=== PATIENT | male | born 1970 | race Caucasian/White ===

== ENCOUNTER 2017-02-15 04:50 | Emergency (ER) | payer SELFPAY ==
[~2017-02-15] VITALS: Ht 182.9 cm; Wt 82.0 kg
[2017-02-15 05:01] VITALS: BP 132/84; PULSE 101; RESP 16; TEMP 98.3; O2SAT 97
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
== END 2017-02-15 05:45 | disposition home or self-care (01) ==
LOC: NEPB 04:50
DX: F10.120 Alcohol abuse with intoxication, uncomplicated (principal); F17.200 Nicotine dependence, unspecified, uncomplicated; Z86.59 Personal history of other mental and behavioral disorders; Z86.69 Personal history of other diseases of the nervous system and sense organs
CPT/HCPCS: 99282

== ENCOUNTER 2017-02-15 19:35 | Emergency (ER) | payer OTHER ==
[~2017-02-15] VITALS: Ht 182.9 cm; Wt 80.0 kg
[2017-02-15 20:14] VITALS: BP 134/82; PULSE 103; RESP 18; TEMP 99.8; O2SAT 96
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
[2017-02-15 22:41] VITALS: BP 165/93; PULSE 120; RESP 17; O2SAT 96
[2017-02-16 02:11] VITALS: BP 143/81; PULSE 89; RESP 19; O2SAT 99
[2017-02-16 06:40] VITALS: BP 151/77; PULSE 93; RESP 17; O2SAT 97
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
== END 2017-02-16 10:14 | disposition home or self-care (01) ==
LOC: NEDAMB 19:35 → NEPJ 02-16 10:14
DX: F10.94 Alcohol use, unspecified with alcohol-induced mood disorder (principal); F10.20 Alcohol dependence, uncomplicated; F17.200 Nicotine dependence, unspecified, uncomplicated; Z86.59 Personal history of other mental and behavioral disorders; Z86.69 Personal history of other diseases of the nervous system and sense organs
CPT/HCPCS: 99284

== ENCOUNTER 2017-04-03 11:48 | Observation (INO) | payer SELFPAY ==
[~2017-04-03] VITALS: Ht 182.9 cm; Wt 80.0 kg
[2017-04-03 11:57] VITALS: BP 132/72; PULSE 115; RESP 18; TEMP 98.8; O2SAT 97
[2017-04-03 12:00] VITALS: BP 132/72; PULSE 105; RESP 22; O2SAT 96
[2017-04-03] MEDS ORDERED: SODIUM CHLOR 0.9% 1000 ML INJ 1,000 ML IV SCH (12:05)
[2017-04-03 12:09] VITALS: O2SAT 98
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
[2017-04-03] MEDS ORDERED: SODIUM CHLORIDE 0.9% FLUSH 10 ML FLUSH IVF PRN (12:15)
[2017-04-03] MEDS ORDERED: LORazepam 2 MG/ML VIAL IV PUSH ONE (12:15)
--- NOTE | 2017-04-03 12:22 | RADRPT ---
EXAM DATE/TIME: 04/03/2017 12:05 [facility] COMPARISON: No previous studies available for comparison. INDICATIONS : Syncope, shaking, chest pain. MEDICAL HISTORY : None. SURGICAL HISTORY : None. ENCOUNTER: Initial ACUITY: 1 day PAIN SCORE: Non-responsive. LOCATION: Bilateral chest FINDINGS: A single view of the chest demonstrates the lungs to be symmetrically aerated without evidence of mas s, infiltrate or effusion. The cardiomediastinal contours are unremarkable. Osseous structures are intact. CONCLUSION: Normal examination for a patient of this age. Eddie Adame MD on April 03, 2017 at 12:20 Board Certified Radiologist. This report was verified electronically.
[2017-04-03 12:39] LABS: AUTOMATED NEUTROPHIL # 3.7 TH/MM3 (1.8-7.7); BASOPHIL # 0.1 TH/MM3 (0-0.2); BASOPHIL % 1.5 % (0.0-2.0); EOSINOPHIL % 0.3 % (0.0-4.0); HEMATOCRIT 43.1 % (39.0-51.0); HEMO FLAGS DIFF FINAL; LYMPH % 37.3 % (9.0-44.0); LYMPHOCYTE # 2.9 TH/MM3 (1.0-4.8); MEAN CELL VOLUME 102.7 FL (80.0-100.0); MEAN CORPUSCULAR HEMOGLOBIN 34.1 PG (27.0-34.0); MEAN CORPUSCULAR HGB CONC 33.2 % (32.0-36.0); MONO % 12.2 % (0.0-8.0); NEUT % 48.7 % (16.0-70.0); PLATELET COUNT 247 TH/MM3 (150-450); RED BLOOD COUNT 4.19 MIL/MM3 (4.50-5.90); RED CELL DISTRIBUTION WIDTH 14.5 % (11.6-17.2); WHITE BLOOD COUNT 7.6 TH/MM3 (4.0-11.0)
[2017-04-03 12:46] LABS: BLOOD, URINE NEG (NEG); GLUCOSE,URINE NEG (NEG); KETONE, URINE NEG (NEG); NITRITE,URINE NEG (NEG); URINE COLOR LIGHT-YELLOW (YELLW/STRAW)
[2017-04-03 12:53] LABS: AMPHETAMINE, URINE NEG (NEG); BARBITURATES, URINE NEG (NEG); COCAINE, URINE NEG (NEG)
[2017-04-03 12:54] LABS: COMMENT (UR) CATH-CULT NOT IND; CULTURE IF INDICATED CATH CULTURE NOT IND
[2017-04-03 12:59] LABS: ALT (GPT) 77 U/L (12-78); ANION GAP 10 MEQ/L (5-15); AST (GOT) 45 U/L (15-37); BICARBONATE 26.5 MEQ/L (21.0-32.0); BLOOD UREA NITROGEN 6 MG/DL (7-18); CHLORIDE 103 MEQ/L (98-107); GLOMERULAR FILTRATION RATE 132 ML/MIN (>89); POTASSIUM 3.8 MEQ/L (3.5-5.1); SODIUM (NA) 139 MEQ/L (136-145)
--- NOTE | 2017-04-03 13:03 | RADRPT ---
EXAM DATE/TIME: 04/03/2017 12:50 [facility] COMPARISON: CT BRAIN W/O CONTRAST, May 24, 2011, 15:40. INDICATIONS : Syncpopal episode today head pain. RADIATION DOSE: 56.77 CTDIvol (mGy) MEDICAL HISTORY : Seizures. History of trumatic brain injury SURGICAL HISTORY : None. ENCOUNTER: Initial ACUITY: 1 day PAIN SCALE: 7/10 LOCATION: cranial TECHNIQUE: Multiple contiguous axial images were obtained of the head. Using automated exposure control and adj ustment of the mA and/or kV according to patient size, radiation dose was kept as low as reasonably a chievable to obtain optimal diagnostic quality images. FINDINGS: CEREBRUM: The ventricles are normal for age. No evidence of midline shift, mass lesion, hemorrhage or acute in farction. No extra-axial fluid collections are seen. POSTERIOR FOSSA: The cerebellum and brainstem are intact. The 4th ventricle is midline. The cerebellopontine angle i s unremarkable. EXTRACRANIAL: The visualized portion of the orbits is intact. SKULL: The calvaria is intact. No evidence of skull fracture. CONCLUSION: Negative for acute process. Demetrius Ricks MD FACR on April 03, 2017 at 13:00 Board Certified Radiologist. This report was verified electronically.
[2017-04-03 13:05] LABS: ALKALINE PHOSPHATASE 81 U/L (45-117); CREATINE KINASE 151 U/L (39-308); TOTAL BILIRUBIN ADULT 0.3 MG/DL (0.2-1.0)
[2017-04-03] MEDS ORDERED: FLUMAZENIL 0.5 MG/5 ML VIAL IV PUSH PRN (14:15)
[2017-04-03] MEDS ORDERED: LORazepam 1 MG TAB PO PRN (14:15)
[2017-04-03] MEDS ORDERED: SODIUM CHLORIDE 0.9% FLUSH 10 ML FLUSH IV FLUSH PRN (14:15)
[2017-04-03] MEDS ORDERED: ACETAMINOPHEN 325 MG TAB PO PRN (14:15)
[2017-04-03] MEDS ORDERED: ONDANSETRON HCL 4 MG/2 ML VIAL IVP PRN (14:15)
[2017-04-03] MEDS ORDERED: LORazepam 2 MG TAB PO PRN (14:15)
[2017-04-03] MEDS ORDERED: LORazepam 2 MG/ML VIAL IV PUSH PRN ×4 (14:15)
[2017-04-03] MEDS ORDERED: MAGNESIUM HYDROXIDE SUSP 30 ML CUP PO PRN (14:15)
[2017-04-03] MEDS ORDERED: NALOXONE HCL 0.4 MG/ML AMP IV PRN (14:15)
[2017-04-03 14:42] LABS: MAGNESIUM 2.3 MG/DL (1.5-2.5)
--- NOTE | 2017-04-03 14:51 | HHI.HP ---
[facility] No Primary Care Physician Admission Diagnosis altered mental status, suspected new onset seizure, etoh inotoxicati Diagnoses: Chief Complaint: "I fell down." Travel History International Travel<30 Days: No Contact w/Intl Traveler <30 Da: No Traveled to Known Affected Are: No History of Present Illness Mr. Dominguez is a 46 year old male with a history of TBI, chronic alcohol abuse who presented to the ED today after falling at a local [employer]. Per ED report, paramedics noted patient's eyes flipped into the back of his head and flutter. He reports possible dizziness, sweating prior to falling. He does not recall the exact detail of the incident. He drinks 6 to 8 beers a night. If he does not drink, he find it difficult to sleep for several days. His last drink was this morning - 6 pack of beer. He denies any chest pain, shortness of breath, fever, chills, cough. He reports no history of seizure activity in the past. Denies any changes in bowel or bladder habits. Review of Systems Except as stated in HPI: all other systems reviewed are Neg Past Family Social History Past Medical History Traumatic Brain Injury Chronic cigarette use/nicotine dependence (37 pack year history, pt stated he started smoking 1ppd at the age of 9) Chronic alcohol abuse/addiction (8 beers per day). Past Surgical History Right arm surgery in 2015 Right wrist repair. Right knee "they basically had to reattach my lower right leg." Reported Medications Reported Meds & Active Scripts Active No Active Prescriptions or Reported Medications Allergies: Coded Allergies: No Known Allergies (Verified , 02/15/17) Active Ordered Medications Current Medications Medications (Trade) Dose Ordered Sig/Kelli Route Start Time Stop Time Status Last Admin Sodium Chloride 2 ml 2 ml UNSCH PRN IVF 04/03/17 12:15 Sodium Chloride 1,000 ml @ 125 mls/hr Q8H IV 04/03/17 12:05 04/03/17 20:04 04/03/17 12:30 (NS 1000 ml Inj) 1,000 ml @ 100 mls/hr Q10H IV 04/03/17 14:05 (NS Flush) 2 ml UNSCH PRN IV FLUSH 04/03/17 14:15 (NS Flush) 2 ml BID IV FLUSH 04/03/17 21:00 (Tylenol) 650 mg Q4H PRN PO 04/03/17 14:15 (Zofran Inj) 4 mg Q6H PRN IVP 04/03/17 14:15 (Milk Of Magnesia Liq) 30 ml Q12H PRN PO 04/03/17 14:15 (Narcan Inj) 0.4 mg UNSCH PRN IV 04/03/17 14:15 (Romazicon Inj) 0.2 mg Q1M PRN IV PUSH 04/03/17 14:15 (Ativan) 1 mg Q4H PRN PO 04/03/17 14:15 (Ativan Inj) 1 mg Q4H PRN IV PUSH 04/03/17 14:15 (Ativan) 2 mg Q2H PRN PO 04/03/17 14:15 (Ativan Inj) 2 mg Q2H PRN IV PUSH 04/03/17 14:15 (Ativan Inj) 2 mg Q1H PRN IV PUSH 04/03/17 14:15 Lorazepam 2 mg 2 mg Q15M PRN IV PUSH 04/03/17 14:15 (Thiamine Inj/NS Inj) 101 ml @ 101 mls/hr DAILY IV 04/03/17 14:15 04/05/17 09:59 (Folate) 1 mg DAILY PO 04/03/17 14:15 Family History Pt reported a family history of "cancer running through the family" and specified lung cancer and leukemia. Social History Chronic Alcohol dependence/addiction. Pt said the longest period he has gone without drinking is "two years." He denied withdrawal/DT history. Chronic cigarette use/nicotine dependence Recreational drug use was denied. Physical Exam Vital Signs Vital Signs Date Time Temp Pulse Resp B/P Pulse Ox O2 Delivery O2 Flow Rate FiO2 04/03/17 12:09 115 20 98 Room Air 04/03/17 12:09 98 Room Air 04/03/17 11:57 98.8 115 18 132/72 97 Physical Exam GENERAL: This is a well-nourished, well-developed patient, in no apparent distress. SKIN: No rashes, ecchymoses or lesions. Cool and dry. well healed scars noted on his head, right wrist, and right knee. HEAD: Atraumatic. Normocephalic. No temporal or scalp tenderness. EYES: Pupils equal round and reactive. Extraocular motions intact. No scleral icterus. No injection or drainage. ENT: Nose without bleeding, purulent drainage. Airway patent. NECK: Trachea midline. No JVD or lymphadenopathy. Supple, non-tender. CARDIOVASCULAR: Regular rate and rhythm without murmurs, gallops, or rubs. RESPIRATORY: Clear to auscultation. Breath sounds equal bilaterally. No wheezes , rales, or rhonchi. GASTROINTESTINAL: Abdomen soft, non-tender, nondistended. No hepato-splenomegaly , or palpable masses. No guarding. MUSCULOSKELETAL: Extremities without clubbing, cyanosis, or edema. No joint tenderness, effusion, or edema noted. NEUROLOGICAL: Awake and alert. Cranial nerves II through XII grossly intact. Motor and sensory grossly within normal limits. Five out of 5 muscle strength in all muscle groups. Speech clear and fluent with some degree of pressure noted. Pt seemed to want to tell his entire history yet could easily be redirected back to topic or in a direction the clinician wanted pt to answer/ explore. Laboratory Laboratory Tests Test 04/03/17 12:15 White Blood Count 7.6 Red Blood Count 4.19 Hemoglobin 14.3 Hematocrit 43.1 Mean Corpuscular Volume 102.7 Mean Corpuscular Hemoglobin 34.1 Mean Corpuscular Hemoglobin 33.2 Concent Red Cell Distribution Width 14.5 Platelet Count 247 Mean Platelet Volume 8.4 Neutrophils (%) (Auto) 48.7 Lymphocytes (%) (Auto) 37.3 Monocytes (%) (Auto) 12.2 Eosinophils (%) (Auto) 0.3 Basophils (%) (Auto) 1.5 Neutrophils # (Auto) 3.7 Lymphocytes # (Auto) 2.9 Monocytes # (Auto) 0.9 Eosinophils # (Auto) 0.0 Basophils # (Auto) 0.1 CBC Comment DIFF FINAL Differential Comment Urine Color LIGHT-YELLOW Urine Turbidity CLEAR Urine pH 7.0 Urine Specific [place] 1.002 Urine Protein NEG Urine Glucose (UA) NEG Urine Ketones NEG Urine Occult Blood NEG Urine Nitrite NEG Urine Bilirubin NEG Urine Urobilinogen LESS THAN 2.0 Urine Leukocyte Esterase NEG Urine RBC LESS THAN 1 Urine WBC LESS THAN 1 Microscopic Urinalysis Comment CATH-CULT NOT IND Sodium Level 139 Potassium Level 3.8 Chloride Level 103 Carbon Dioxide Level 26.5 Anion Gap 10 Blood Urea Nitrogen 6 Creatinine 0.65 Estimat Glomerular Filtration 132 Rate Random Glucose 88 Calcium Level 8.6 Total Bilirubin 0.3 Aspartate Amino Transf 45 (AST/SGOT) Alanine Aminotransferase 77 (ALT/SGPT) Alkaline Phosphatase 81 Total Creatine Kinase 151 Troponin I LESS THAN 0.02 Total Protein 7.1 Albumin 3.7 Urine Opiates Screen NEG Urine Barbiturates Screen NEG Urine Amphetamines Screen NEG Urine Benzodiazepines Screen NEG Urine Cocaine Screen NEG Urine Cannabinoids Screen NEG Ethyl Alcohol Level 257 Result Diagram: 04/03/17 1215 04/03/17 1215 Imaging Last Impressions Head CT 04/03/17 1205 Signed Impressions: Service Date/Time: Monday, April 03, 2017 12:50 - CONCLUSION: Negative for acute process. Demetrius Ricks MD FACR Chest X-Ray 04/03/17 1205 Signed Impressions: Service Date/Time: Monday, April 03, 2017 12:05 - CONCLUSION: Normal examination for a patient of this age. Eddie Adame MD Bilateral carotid ultra sound is pending. Assessment and Plan Problem List: (1) History of traumatic brain injury ICD Code: Z87.820 Status: Acute (2) Altered sensorium ICD Code: R40.4 Status: Acute (3) Alcohol intoxication ICD Code: F10.129 Status: Acute (4) Tobacco abuse ICD Code: Z72.0 Status: Acute (5) Alcohol abuse ICD Code: F10.10 Status: Acute Assessment and Plan Mr. Dominguez is a 46 year old male with a history of TBI, chronic alcohol abuse who presented to the ED today after falling at a local [employer]. Per ED report, paramedics noted patient's eyes flipped into the back of his head and flutter. Patient reports drinking 6-8 beers a night. Given patient's history of TBI, possible seizure activity was not exclusively attributed to alcohol and thus hospitalist service was asked to admit this patient for further work up. Probable seizure activity Probable syncope Remote history of TBI Seizure activity is likely due to alcohol intake. Neurology has been consulted, awaiting their input. EEG ordered. CT of head without acute findings, images reviewed by me Chest xray without acute findings or cardiomegaly, CXR reviewed by me Bilateral carotid US was being initiated at time H&P was completed; results pending. Will continue telemetry due to concern over possible syncope - although it is a low possibility. Alcohol dependence/addiction -CHRISTELLE was 257 upon admission to ED. -CIWA protocol initiated. -Librium 25 mg po TID ordered -Thiamine and folic acid replacement. Chronic cigarette use/ Nicotine dependence Nicoderm patch 21 mg transdermal daily ordered. Counselled patient regarding alcohol abuse and seizure activity. Full code. SCDs. Discussed Condition With Condition discussed with ED physician (Dr. Werner), Pt, ED RN at bedside. Case also briefly discussed with Neurologist Dr. Lewis. Written by Rolly Pabon, acting as scribe for Dr. Hill on 04/03/17 at 15:38. This note was transcribed by scribe Rolly Pabon PA-C. I, Dr. Celio Hill personally performed the history, physical exam, and medical decision making; and confirmed the accuracy of the information in the transcribed note. Authenticated by Dr. Celio Hill on 04/03/17 at 22:07. Rolly Pabon Jr. April 03, 2017 14:51 Henry Hill DO April 03, 2017 22:08
[2017-04-03 15:00] VITALS: BP 123/78; PULSE 100; RESP 20; TEMP 98.8; O2SAT 96
[2017-04-03] MEDS: SODIUM CHLOR 0.9% 1000 ML INJ 1,000 ML IV SCH (15:14)
[2017-04-03] MEDS: FOLIC ACID 1 MG TAB PO SCH (15:15)
[2017-04-03] MEDS: THIAMINE INJ 100 MG in SODIUM CHLORIDE 0.9% INJ 100 ML IV SCH (15:17)
[2017-04-03] MEDS ORDERED: chlordiazePOXIDE 25 MG CAP PO PRN (15:30)
--- NOTE | 2017-04-03 15:51 | RADRPT ---
EXAM DATE/TIME: 04/03/2017 15:08 [facility] COMPARISON: No previous studies available for comparison. INDICATIONS : Syncope. MEDICAL HISTORY : Syncope. Traumatic brain injury. Depression. Previous suicide attempt. Al cohol use. SURGICAL HISTORY : Tonsillectomy. Right knee repair. Left wrist. Right arm. ENCOUNTER: Initial ACUITY: 1 day PAIN SCORE: 0/10 LOCATION: Bilateral neck PEAK SYSTOLIC VELOCITIES (cm/sec): ICA/CCA RATIO: Right: 0.6 Left: 0.8 ICA: Right: 69 Left: 89 CCA: Right: 120 Left: 116 ECA: Right: 106 Left: 95 VERTEBRAL: Right: 46 antegrade Left: 55 antegrade Elevated flow velocities and ICA/CCA ratios have been found to correlate with increased degrees of vessel stenosis, calculated as percentage of diameter relative to a normal segment of distal ICA/CCA FINDINGS: RIGHT CAROTID: There is no evidence for a hemodynamically significant carotid stenosis. Minimal int imal hyperplasia is present with scattered calcific plaque. LEFT CAROTID: There is no evidence for a hemodynamically significant carotid stenosis. Minimal inti mal hyperplasia is present with scattered calcific plaque. VERTEBRAL ARTERIES: Flow is antegrade in both vertebral arteries. MISCELLANEOUS: There are no ancillary masses or adenopathy. CONCLUSION: Negative examination for a hemodynamically significant carotid stenosis. Demetrius Ricks MD FACR Board Certified Radiologist. This report was verified electronically.
[2017-04-03 16:13] VITALS: BP 134/83; PULSE 91; RESP 20; TEMP 97.9; O2SAT 94
[2017-04-03] MEDS: SODIUM CHLORIDE 0.9% FLUSH 10 ML FLUSH IV FLUSH SCH (20:04)
[2017-04-03] MEDS ORDERED: REMOVE OLD PATCH T-DERMAL SCH (21:00)
[2017-04-03 21:12] LABS: FREE T4 1.04 NG/DL (0.76-1.46)
[2017-04-03 21:46] VITALS: BP 127/82; PULSE 95; RESP 18; TEMP 99.2; O2SAT 94
[2017-04-04] VITALS (7 sets, daily range): BP systolic 126–164; BP diastolic 73–92; PULSE 71–85; RESP 18–20; TEMP 98–99; O2SAT 92–99
[2017-04-04] MEDS: SODIUM CHLOR 0.9% 1000 ML INJ 1,000 ML IV SCH ×2 (00:05→10:23)
--- NOTE | 2017-04-04 07:25 | MG ---
cc: HUSSAIN DELUNA Lab No: [id number] Date: 04/04/2017 Age: 46 Sex: M Race: __ INDICATIONS This is a 46-year-old with syncope, eyes fluttered, rolled back. MEDICATIONS The patient was status post Ativan. DESCRIPTION A 9 Hz 60 microvolt symmetric posterior and diffuse rhythm is seen. No hemisphere asymmetries are noted, the patient appears to fall asleep and does not quite reach stage II sleep. Photic stimulation was performed with some mild symmetric posterior driving. No epileptiform or seizure activity is noted. There are no hemisphere asymmetries, hyperventilation was performed with poor effort without significant change in the background. The patient was noted to be heavily snoring. IMPRESSION A normal awake and sleep EEG. No evidence for a focal or diffuse abnormality. Quite a bit of snoring was noted. MD BHAVANI Matute/JA /6:18 AM /7:22 AM
[2017-04-04 07:51] LABS: AUTOMATED NEUTROPHIL # 4.1 TH/MM3 (1.8-7.7); BASOPHIL # 0.1 TH/MM3 (0-0.2); BASOPHIL % 0.9 % (0.0-2.0); EOSINOPHIL # 0.1 TH/MM3 (0-0.4); EOSINOPHIL % 1.2 % (0.0-4.0); HEMATOCRIT 41.5 % (39.0-51.0); HEMO FLAGS DIFF FINAL; LYMPH % 39.7 % (9.0-44.0); LYMPHOCYTE # 3.4 TH/MM3 (1.0-4.8); MEAN CELL VOLUME 103.1 FL (80.0-100.0); MEAN CORPUSCULAR HEMOGLOBIN 34.9 PG (27.0-34.0); MEAN CORPUSCULAR HGB CONC 33.9 % (32.0-36.0); MONO % 10.4 % (0.0-8.0); NEUT % 47.8 % (16.0-70.0); PLATELET COUNT 239 TH/MM3 (150-450); RED BLOOD COUNT 4.03 MIL/MM3 (4.50-5.90); RED CELL DISTRIBUTION WIDTH 14.8 % (11.6-17.2); WHITE BLOOD COUNT 8.5 TH/MM3 (4.0-11.0)
--- NOTE | 2017-04-04 07:55 | HHI.PR ---
Objective Vital Signs Date Time Temp Pulse Resp B/P Pulse Ox O2 Delivery O2 Flow Rate FiO2 04/04/17 05:39 98.6 73 18 130/92 94 04/04/17 00:35 98.7 72 18 144/84 95 04/03/17 21:46 99.2 95 18 127/82 94 04/03/17 18:37 20 04/03/17 16:13 97.9 91 20 134/83 94 04/03/17 15:00 98.8 100 20 123/78 96 Room Air 04/03/17 12:09 115 20 98 Room Air 04/03/17 12:09 98 Room Air 04/03/17 12:00 105 22 132/72 96 Room Air 04/03/17 11:57 98.8 115 18 132/72 97 Result Diagram: 04/04/17 0600 04/03/17 1215 Objective Remarks AWAKE ALERT NO NEW CO OR PROBLEMS Assessment and Plan Assessment and Plan imp eeg neg labs ok if his mri nl and standing bp ok he can be dc and needs to dc etoh Rico Lewis MD April 04, 2017 07:55
[2017-04-04 08:02] LABS: BICARBONATE 26.2 MEQ/L (21.0-32.0); POTASSIUM 4.2 MEQ/L (3.5-5.1)
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
[2017-04-04] MEDS ORDERED: REMOVE OLD PATCH T-DERMAL SCH (09:00)
[2017-04-04] MEDS ORDERED: NICOTINE 21 MG/24 HR PATCH T-DERMAL SCH (09:00)
--- NOTE | 2017-04-04 09:33 | HHI.PR ---
Subjective Remarks Follow up altered mental status. Patient is currently A&Ox3 and states he is hungry. He states he drinks to be able to sleep, he says nothing else has helped like Tylenol pm. He does not have a pcp or insurance to follow up outpatient. He does at times get dizzy when he drinks, but does not usually fall. He denies any chest pain, sob, fever or chills. He is nauseous from not eating this morning. Denies any tremors or diaphoresis. Objective Vitals Vital Signs Date Time Temp Pulse Resp B/P Pulse Ox O2 Delivery O2 Flow Rate FiO2 04/04/17 08:00 98.2 84 19 139/76 97 141/91 164/89 04/04/17 05:39 98.6 73 18 130/92 94 04/04/17 00:35 98.7 72 18 144/84 95 04/03/17 21:46 99.2 95 18 127/82 94 04/03/17 18:37 20 04/03/17 16:13 97.9 91 20 134/83 94 04/03/17 15:00 98.8 100 20 123/78 96 Room Air 04/03/17 12:09 115 20 98 Room Air 04/03/17 12:09 98 Room Air 04/03/17 12:00 105 22 132/72 96 Room Air 04/03/17 11:57 98.8 115 18 132/72 97 Result Diagram: 04/04/17 0600 04/04/17 0600 Imaging Last Impressions Head CT 04/03/17 1205 Signed Impressions: Service Date/Time: Monday, April 03, 2017 12:50 - CONCLUSION: Negative for acute process. Demetrius Ricks MD FACR Chest X-Ray 04/03/17 1205 Signed Impressions: Service Date/Time: Monday, April 03, 2017 12:05 - CONCLUSION: Normal examination for a patient of this age. Eddie Adame MD Carotid Artery Ultrasound 04/03/17 0000 Signed Impressions: Service Date/Time: Monday, April 03, 2017 15:08 - CONCLUSION: Negative examination for a hemodynamically significant carotid stenosis. Demetrius Ricks MD Objective Remarks GENERAL: well nourished patient in NAD,c/o being hungry SKIN: Warm and dry. HEAD: Atraumatic. Normocephalic. EYES: Pupils equal and round. No scleral icterus. No injection or drainage. ENT: No nasal bleeding or discharge. Mucous membranes pink and moist. NECK: Trachea midline. No JVD. CARDIOVASCULAR: Regular rate and rhythm. RESPIRATORY: No accessory muscle use. Clear to auscultation. Breath sounds equal bilaterally. GASTROINTESTINAL: Abdomen soft, non-tender, nondistended. Nauseous. MUSCULOSKELETAL: Extremities without clubbing, cyanosis, or edema. No obvious deformities. NEUROLOGICAL: Awake and alert. Motor grossly within normal limits. Normal speech. PSYCHIATRIC: Appropriate mood and affect; insight and judgment normal. Medications and IVs Current Medications Medications (Trade) Dose Ordered Sig/Kelli Route Start Time Stop Time Status Last Admin Sodium Chloride 2 ml 2 ml UNSCH PRN IVF 04/03/17 12:15 (NS 1000 ml Inj) 1,000 ml @ 100 mls/hr Q10H IV 04/03/17 14:05 04/03/17 15:14 (NS Flush) 2 ml UNSCH PRN IV FLUSH 04/03/17 14:15 (NS Flush) 2 ml BID IV FLUSH 04/03/17 21:00 (Tylenol) 650 mg Q4H PRN PO 04/03/17 14:15 04/03/17 17:30 (Zofran Inj) 4 mg Q6H PRN IVP 04/03/17 14:15 04/03/17 17:30 (Milk Of Magnesia Liq) 30 ml Q12H PRN PO 04/03/17 14:15 (Narcan Inj) 0.4 mg UNSCH PRN IV 04/03/17 14:15 (Romazicon Inj) 0.2 mg Q1M PRN IV PUSH 04/03/17 14:15 (Ativan) 1 mg Q4H PRN PO 04/03/17 14:15 04/04/17 06:52 (Ativan Inj) 1 mg Q4H PRN IV PUSH 04/03/17 14:15 (Ativan) 2 mg Q2H PRN PO 04/03/17 14:15 (Ativan Inj) 2 mg Q2H PRN IV PUSH 04/03/17 14:15 04/03/17 17:31 (Ativan Inj) 2 mg Q1H PRN IV PUSH 04/03/17 14:15 Lorazepam 2 mg 2 mg Q15M PRN IV PUSH 04/03/17 14:15 (Thiamine Inj/NS Inj) 101 ml @ 101 mls/hr DAILY IV 04/03/17 14:15 04/05/17 09:59 04/03/17 15:17 (Folate) 1 mg DAILY PO 04/03/17 14:15 04/03/17 15:15 (Librium) 25 mg TID PRN PO 04/03/17 15:30 (Habitrol 21 Mg Patch.24 Hr) 1 patch DAILY T-DERMAL 04/04/17 09:00 Miscellaneous Information 1 HS T-DERMAL 04/03/17 21:00 Urinary Catheter: No Vascular Central Line Catheter: No A/P Problem List: (1) History of traumatic brain injury ICD Code: Z87.820 Status: Acute (2) Altered sensorium ICD Code: R40.4 Status: Acute (3) Alcohol intoxication ICD Code: F10.129 Status: Acute (4) Tobacco abuse ICD Code: Z72.0 Status: Chronic (5) Alcohol abuse ICD Code: F10.10 Status: Chronic (6) Syncope ICD Code: R55 Status: Acute Assessment and Plan Mr. Dominguez is a 46 year old male with a history of TBI, chronic alcohol abuse who presented to the ED today after falling at a [place] [employer]. Per ED report, paramedics noted patient's eyes flipped into the back of his head and flutter. Patient reports drinking 6-8 beers a night. Given patient's history of TBI, possible seizure activity was not exclusively attributed to alcohol and thus hospitalist service was asked to admit this patient for further work up. Syncope, possible seizure, hx of TBI, ETOH abuse EEG shows a normal awake and sleep EEG CT of head without acute findings Chest xray without acute findings or cardiomegaly Bilateral carotid US unremarkable, no carotid stenosis -Neurology has been consulted, MRI ordered, MRI unremarkable -Seizure precautions -Cont telemetry -Orthostatics ordered, currently negative -PT eval and treat, suggest no PT, pt is able to ambulate independently Acute alcohol intoxication, no evidence of withdrawals CHRISTELLE was 257 upon admission to ED. -Cont CIWA protocol -Cont Librium 25 mg po TID ordered -Cont Thiamine and folic acid replacement. -Encouraged to quit, patient verbalizes understanding that he needs to quit Chronic cigarette use/ Nicotine dependence -Cont Nicoderm patch 21 mg transdermal daily ordered. -Encouraged to quit DVT prophylaxis: SCDs Discharge patient to home Condition on discharge: Stable Regular Diet as tolerated Ad Hien activity Rx written:none Follow-up with primary care physician in 2-3 days, Blue card given for Dr. Wilson Stop drinking, pt verbalizes understanding. Discharge Planning Pending discharge later today if patient is ambulating, eating and has remained stable. Estella Israel April 04, 2017 09:33
[2017-04-04] MEDS: FOLIC ACID 1 MG TAB PO SCH (09:43)
[2017-04-04] MEDS: SODIUM CHLORIDE 0.9% FLUSH 10 ML FLUSH IV FLUSH SCH (09:43)
[2017-04-04 09:44] LABS: RAPID PLASMA REAGIN SCREEN NON-REACTIVE (NON-REACTVE)
[2017-04-04] MEDS ORDERED: GADODIAMIDE PF 287 MG/ML 20 ML VIAL (for RAD MRI) IV ONE (10:11)
[2017-04-04] MEDS: THIAMINE INJ 100 MG in SODIUM CHLORIDE 0.9% INJ 100 ML IV SCH (10:22)
--- NOTE | 2017-04-04 10:31 | RADRPT ---
EXAM DATE/TIME: 04/04/2017 09:54 [facility] COMPARISON: No previous studies available for comparison. INDICATIONS : Seizures. CONTRAST: 16 cc Omniscan (gadodiamide) IV MEDICAL HISTORY : Traumatic brain injury. SURGICAL HISTORY : Right hand/leg ENCOUNTER: Initial ACUITY: 2 day PAIN SCORE: 0/10 LOCATION: head TECHNIQUE: Multiplanar, multisequence MRI of the brain was performed both prior to and following the administrat ion of paramagnetic contrast. FINDINGS: CEREBRUM: The ventricles are normal for age. No evidence of midline shift, mass lesion, hemorrhage or acute in farction. No extraaxial fluid collections are seen. The pituitary gland and suprasellar cistern are normal in configuration. WHITE MATTER: No significant signal abnormalities are seen in the white matter. POSTERIOR FOSSA: The cerebellum and brainstem are intact. The 4th ventricle is midline. The cerebellopontine angle is unremarkable. The cerebellar tonsils are normal in position. DIFFUSION IMAGING: No focal areas of restricted diffusion are seen. No evidence of acute infarction. EXTRACRANIAL: The visualized portions of the orbits and paranasal sinuses are unremarkable. POST-CONTRAST: No abnormal areas of parenchymal or dural enhancement. No evidence of blood-brain barrier breakdown. CONCLUSION: Normal examination. Rian Feliciano Jr., MD on April 04, 2017 at 10:22 Board Certified Radiologist. This report was verified electronically.
--- NOTE | 2017-04-04 15:21 | EKG ---
Date Performed: 04/03/2017 Time Performed: 12:06:40 PTAGE: 46 years EKG: SINUS TACHYCARDIA ABNORMAL RHYTHM ECG Compared to the PREVIOUS TRACING sinus rate has increased PREVIOUS TRACIN10/05/16 @ 12:53 DOCTOR: Dawson Benavidez Interpretating Date/Time 04/04/2017 15:20:35
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
[2017-04-05 14:27] LABS: ANA SCREEN NEG (NEG)
== END 2017-04-04 18:12 | disposition home or self-care (01) ==
LOC: NEPC 11:48 → NEDA 14:09 → NEPFCDU 16:01
PROVIDERS: ADMIT Internal Medicine; ATTEND Internal Medicine
DX: F10.229 Alcohol dependence with intoxication, unspecified (principal); R56.9 Unspecified convulsions; Z87.820 Personal history of traumatic brain injury; F17.210 Nicotine dependence, cigarettes, uncomplicated; W19.XXXA Unspecified fall, initial encounter; Y92.511 Restaurant or cafe as the place of occurrence of the external cause
CPT/HCPCS: 70450; 70553; 71010; 80048; 80053; 80307; 81001; 82550; 82607; 82746; 83735; 84439; 84443; 84484; 85025; 85652; 86038; 86592; 93005; 93880; 95819; 96361; 96374; 97162; 99285; A9579; G0378; G8987; G8988; J2060; J2405; J3411; J7030

== ENCOUNTER 2017-05-26 18:20 | Emergency (ER) | payer SELFPAY ==
[~2017-05-26] VITALS: Ht 182.9 cm; Wt 77.7 kg
[2017-05-26 18:24] VITALS: BP 95/58; PULSE 75; RESP 15; TEMP 97.9; O2SAT 97
--- NOTE | 2017-05-26 18:49 | PD ---
HPI Chief Complaint: Flank/Kidney Pain Time Seen by Provider: 18:34 Travel History International Travel<30 days: No Contact w/Intl Traveler<30days: No Traveled to known affect area: No History of Present Illness HPI This 46-year-old male says he is having some pain in the right flank. The pain is migratory goes in the right side the left side. Goes up into his chest and down to his leg. Patient does say that he drinks quite a bit of alcohol. PFSH Past Medical History Hx Anticoagulant Therapy: No Anxiety: Yes Depression: Yes Cancer: No Cardiovascular Problems: No Diminished Hearing: No Endocrine: No Gastrointestinal Disorders: No Genitourinary: No Hepatitis: No Hiatal Hernia: No Hypertension: No Immune Disorder: No Musculoskeletal: No Neurologic: Yes (H/O TBI) Psychiatric: Yes Reproductive: No Respiratory: No Immunizations Current: Yes Thyroid Disease: No Tetanus Vaccination: < 5 Years Influenza Vaccination: No Past Surgical History Abdominal Surgery: No AICD: No Body Medical Devices: NONE Cardiac Surgery: No Ear Surgery: No Endocrine Surgery: No Eye Surgery: No Genitourinary Surgery: No Neurologic Surgery: No Pacemaker: No Thoracic Surgery: No Tonsillectomy: Yes Other Surgery: Yes (right arm 2015, knee, wrist) Social History Alcohol Use: Yes (8-10 beers/day) Tobacco Use: Yes (1 PPD) Substance Use: No Allergies-Medications (Allergen,Severity, Reaction): Coded Allergies: No Known Allergies (Verified , 05/26/17) Reported Meds & Prescriptions Reported Meds & Active Scripts Active No Active Prescriptions or Reported Medications Review of Systems General / Constitutional: No: Fever, Chills Eyes: No: Diploplia, Blurred Vision HENT: No: Headaches Cardiovascular: No: Chest Pain or Discomfort Respiratory: No: Cough, Wheezing Gastrointestinal: No: Nausea, Vomiting Genitourinary: Positive: Flank Pain Musculoskeletal: No: Myalgias, Arthralgias Neurologic: No: Weakness, Dizziness Physical Exam Narrative GENERAL: Well-developed male SKIN: Focused skin assessment warm/dry. HEAD: Atraumatic. Normocephalic. EYES: Pupils equal and round. No scleral icterus. No injection or drainage. ENT: No nasal bleeding or discharge. Mucous membranes pink and moist. NECK: Trachea midline. No JVD. CARDIOVASCULAR: Regular rate and rhythm. No murmur appreciated. RESPIRATORY: No accessory muscle use. Clear to auscultation. Breath sounds equal bilaterally. GASTROINTESTINAL: Abdomen soft, non-tender, nondistended. Hepatic and splenic margins not palpable. MUSCULOSKELETAL: No obvious deformities. No clubbing. No cyanosis. No edema. NEUROLOGICAL: Awake and alert. No obvious cranial nerve deficits. Motor grossly within normal limits. Normal speech. PSYCHIATRIC: Appropriate mood and affect; insight and judgment normal. Data Data Last Documented VS Vital Signs Date Time Temp Pulse Resp B/P Pulse Ox O2 Delivery O2 Flow Rate FiO2 05/26/17 19:50 98.4 66 18 114/64 97 Room Air Orders Complete Blood Count With Diff (05/26/17 18:41) Comprehensive Metabolic Panel (05/26/17 18:41) Urinalysis - C+S If Indicated (05/26/17 18:41) Chest, Single Ap (05/26/17 18:41) Labs Laboratory Tests Test 05/26/17 19:14 White Blood Count 12.4 TH/MM3 Red Blood Count 3.97 MIL/MM3 Hemoglobin 13.9 GM/DL Hematocrit 40.0 % Mean Corpuscular Volume 100.7 FL Mean Corpuscular Hemoglobin 35.0 PG Mean Corpuscular Hemoglobin 34.8 % Concent Red Cell Distribution Width 12.0 % Platelet Count 289 TH/MM3 Mean Platelet Volume 8.1 FL Neutrophils (%) (Auto) 73.3 % Lymphocytes (%) (Auto) 20.6 % Monocytes (%) (Auto) 4.6 % Eosinophils (%) (Auto) 0.5 % Basophils (%) (Auto) 1.0 % Neutrophils # (Auto) 9.1 TH/MM3 Lymphocytes # (Auto) 2.6 TH/MM3 Monocytes # (Auto) 0.6 TH/MM3 Eosinophils # (Auto) 0.1 TH/MM3 Basophils # (Auto) 0.1 TH/MM3 CBC Comment DIFF FINAL Differential Comment Sodium Level 139 MEQ/L Potassium Level 3.9 MEQ/L Chloride Level 104 MEQ/L Carbon Dioxide Level 26.5 MEQ/L Anion Gap 9 MEQ/L Blood Urea Nitrogen 11 MG/DL Creatinine 0.73 MG/DL Estimat Glomerular Filtration 115 ML/MIN Rate Random Glucose 163 MG/DL Calcium Level 8.2 MG/DL Total Bilirubin 0.3 MG/DL Aspartate Amino Transf 13 U/L (AST/SGOT) Alanine Aminotransferase 35 U/L (ALT/SGPT) Alkaline Phosphatase 82 U/L Total Protein 7.2 GM/DL Albumin 3.6 GM/DL MDM Medical Decision Making Medical Screen Exam Complete: Yes Emergency Medical Condition: Yes Medical Record Reviewed: Yes Differential Diagnosis Differential includes musculoskeletal pain, chronic alcohol abuse, Narrative Course Lab work is unremarkable. Patient does not appear in any distress in fact sleeping soundly throughout his ER visit. He'll be released. I will recommend to [facility] for treatment of his alcohol problem Diagnosis Primary Impression: Musculoskeletal pain Additional Instructions: Follow-up at [facility] for treatment of alcohol abuse Scripts No Active Prescriptions or Reported Meds Disposition: 01 DISCHARGE HOME Condition: Stable Nick Sheets MD May 26, 2017 18:49
--- NOTE | 2017-05-26 19:17 | RADRPT ---
EXAM DATE/TIME: 05/26/2017 19:03 [facility] COMPARISON: CHEST SINGLE AP, April 03, 2017, 12:05. INDICATIONS : Chest pain starting today MEDICAL HISTORY : None. SURGICAL HISTORY : None. ENCOUNTER: Initial ACUITY: 1 day PAIN SCORE: 10/10 LOCATION: Bilateral chest FINDINGS: A single view of the chest demonstrates the lungs to be symmetrically aerated without evidence of mas s, infiltrate or effusion. The cardiomediastinal contours are unremarkable. Osseous structures are intact. CONCLUSION: No acute disease. Demetrius Ricks MD FACR on May 26, 2017 at 19:16 Board Certified Radiologist. This report was verified electronically.
[2017-05-26 19:34] LABS: AUTOMATED NEUTROPHIL # 9.1 TH/MM3 (1.8-7.7); BASOPHIL # 0.1 TH/MM3 (0-0.2); EOSINOPHIL # 0.1 TH/MM3 (0-0.4); EOSINOPHIL % 0.5 % (0.0-4.0); LYMPH % 20.6 % (9.0-44.0); LYMPHOCYTE # 2.6 TH/MM3 (1.0-4.8); MEAN CELL VOLUME 100.7 FL (80.0-100.0); MEAN CORPUSCULAR HGB CONC 34.8 % (32.0-36.0); MONO % 4.6 % (0.0-8.0); NEUT % 73.3 % (16.0-70.0); PLATELET COUNT 289 TH/MM3 (150-450); RED BLOOD COUNT 3.97 MIL/MM3 (4.50-5.90); WHITE BLOOD COUNT 12.4 TH/MM3 (4.0-11.0)
[2017-05-26 19:39] LABS: HEMO FLAGS DIFF FINAL
[2017-05-26 19:43] LABS: CHLORIDE 104 MEQ/L (98-107); POTASSIUM 3.9 MEQ/L (3.5-5.1); SODIUM (NA) 139 MEQ/L (136-145)
[2017-05-26 19:47] LABS: ANION GAP 9 MEQ/L (5-15); BICARBONATE 26.5 MEQ/L (21.0-32.0); BLOOD UREA NITROGEN 11 MG/DL (7-18)
[2017-05-26 19:50] VITALS: BP 114/64; PULSE 66; RESP 18; TEMP 98.4; O2SAT 97
[2017-05-26 19:50] LABS: ALT (GPT) 35 U/L (12-78); AST (GOT) 13 U/L (15-37); GLOMERULAR FILTRATION RATE 115 ML/MIN (>89)
[2017-05-26 19:52] LABS: TOTAL BILIRUBIN ADULT 0.3 MG/DL (0.2-1.0)
[2017-05-26 19:53] LABS: ALKALINE PHOSPHATASE 82 U/L (45-117)
[2017-05-26 21:00] VITALS: BP 110/66; PULSE 65; RESP 18; O2SAT 97
== END 2017-05-26 21:01 | disposition home or self-care (01) ==
LOC: PHED 18:20
DX: M79.1 Myalgia (principal); F17.210 Nicotine dependence, cigarettes, uncomplicated
CPT/HCPCS: 71010; 80053; 85025; 99284

== ENCOUNTER 2017-05-27 22:10 | Emergency (ER) | payer SELFPAY ==
[~2017-05-27] VITALS: Ht 180.3 cm; Wt 80.0 kg
[2017-05-27 22:13] VITALS: BP 120/82; PULSE 99; RESP 16; TEMP 98.5; O2SAT 98
== END 2017-05-27 23:10 | disposition left against medical advice (07) ==
LOC: NED 22:10
DX: Z04.9 Encounter for examination and observation for unspecified reason (principal)
CPT/HCPCS: 99281

== ENCOUNTER 2017-07-28 10:11 | Emergency (ER) | payer SELFPAY ==
[~2017-07-28] VITALS: Ht 182.9 cm; Wt 80.6 kg
[2017-07-28 10:16] VITALS: BP 127/73; PULSE 96; RESP 16; TEMP 98.8; O2SAT 99
[2017-07-28] MEDS ORDERED: AMOXICILLIN/CLAVULANATE K 875 MG TAB PO ONE (11:15)
[2017-07-28] MEDS ORDERED: LIDOCAINE HCL 1% 50 ML VIAL INFIL ONE (11:15)
[2017-07-28] MEDS ORDERED: AUGM875T3 PO (11:23)
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
== END 2017-07-28 11:57 | disposition home or self-care (01) ==
LOC: PHED 10:11 → PHEFT 11:57
DX: S61.212A Laceration without foreign body of right middle finger without damage to nail, initial encounter (principal); F17.210 Nicotine dependence, cigarettes, uncomplicated; Y04.2XXA Assault by strike against or bumped into by another person, initial encounter
CPT/HCPCS: 12001; 29130

== ENCOUNTER 2017-08-13 13:01 | Emergency (ER) | payer SELFPAY ==
[~2017-08-13 13:01] MED LIST: AUGM875T3 PO
[2017-08-13 13:05] VITALS: BP 139/60; PULSE 94; RESP 16; TEMP 99.9; O2SAT 96
[2017-08-13] MEDS ORDERED: CEPH-460 PO (13:44)
[2017-08-13] MEDS ORDERED: BACT800T5 PO (13:44)
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
== END 2017-08-13 14:04 | disposition home or self-care (01) ==
LOC: PHEFT 13:01
DX: S61.411A Laceration without foreign body of right hand, initial encounter (principal); L08.9 Local infection of the skin and subcutaneous tissue, unspecified; S60.511A Abrasion of right hand, initial encounter; S90.811A Abrasion, right foot, initial encounter; Y09 Assault by unspecified means
CPT/HCPCS: 99284; L3908

== ENCOUNTER 2017-08-18 01:30 | Emergency (ER) | payer SELFPAY ==
[~2017-08-18 01:30] MED LIST changes: -AUGM875T3 PO; +BACT800T5 PO; +CEPH-460 PO
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
[2017-08-18] MEDS ORDERED: diphenhydrAMINE HCL 50 MG/ML VIAL IV PUSH ONE (01:45)
[2017-08-18] MEDS ORDERED: SODIUM CHLOR 0.9% 1000 ML INJ 1,000 ML IV ONE (01:45)
[2017-08-18] MEDS ORDERED: ONDANSETRON HCL 4 MG/2 ML VIAL IV PUSH ONE (01:45)
== END 2017-08-18 01:56 | disposition left against medical advice (07) ==
LOC: PHED 01:30
DX: F10.129 Alcohol abuse with intoxication, unspecified (principal)
CPT/HCPCS: 99283

== ENCOUNTER 2018-01-31 22:35 | Emergency (ER) | payer SELFPAY ==
[2018-01-31 22:49] VITALS: BP 142/86; PULSE 110; RESP 20; TEMP 97.8; O2SAT 98
[2018-01-31] MEDS ORDERED: TETANUS/DIPHTHERIA TOXOID ADULT 0.5 ML VIAL IM ONE (23:15)
[2018-01-31] MEDS ORDERED: PROPARACAINE HCL 0.5% OPHT SOLN 15 ML BTL EACH EYE ONE (23:15)
--- NOTE | 2018-01-31 23:37 | PD ---
HPI Chief Complaint: Alcohol/Drug Intoxication Time Seen by Provider: 22:52 Travel History International Travel<30 days: No Contact w/Intl Traveler<30days: No Traveled to known affect area: No History of Present Illness HPI 47-year-old white male presents emergency department by EMS requesting evaluation of a foreign body sensation in his left eye after breaking up tile earlier today as well as alcohol intoxication. He states that he would like to go to [facility] for detox. He has a history of chronic alcohol abuse. The patient states that he was wearing sunglasses at the time he was breaking up tile. He felt something go into his left eye. He had rinsed his eye out and felt that he may have gotten a foreign body out. He has been persistent with foreign body sensation, light sensitivity and tearing. The patient admits to drinking alcohol to help with his pain. He states that he is a chronic alcoholic and drinks on a daily basis. He like to get into detox at [facility]. No suicidal or homicidal ideation. No toxic ingestions. PFSH Past Medical History Hx Anticoagulant Therapy: No Anxiety: Yes Depression: Yes Cancer: No Cardiovascular Problems: No Diminished Hearing: No Endocrine: No Gastrointestinal Disorders: No Genitourinary: No Hepatitis: No Hiatal Hernia: No Hypertension: No Immune Disorder: No Musculoskeletal: No Neurologic: Yes (H/O TBI) Psychiatric: Yes Reproductive: No Respiratory: No Immunizations Current: Yes Thyroid Disease: No Tetanus Vaccination: > 5 Years ?: Not Past Surgical History Abdominal Surgery: No AICD: No Body Medical Devices: NONE Cardiac Surgery: No Ear Surgery: No Endocrine Surgery: No Eye Surgery: No Genitourinary Surgery: No Joint Replacement: No Neurologic Surgery: No Oral Surgery: Yes (TONSILLECTOMY ) Pacemaker: No Thoracic Surgery: No Tonsillectomy: Yes Other Surgery: Yes (right arm 2015, knee, wrist) Social History Alcohol Use: Yes (8-10 beers/day) Tobacco Use: Yes (1 PPD) Substance Use: No Allergies-Medications (Allergen,Severity, Reaction): Coded Allergies: No Known Allergies (Verified Allergy, Unknown, 01/31/18) Reported Meds & Prescriptions Reported Meds & Active Scripts Active Review of Systems General / Constitutional: No: Fever Eyes: Positive: Blurred Vision, Photophobia, Redness, Foreign Body Sensation, Pain, Tearing, Visual changes, No: Diploplia HENT: No: Headaches Cardiovascular: No: Chest Pain or Discomfort Respiratory: No: Shortness of Breath Gastrointestinal: No: Abdominal Pain Genitourinary: No: Dysuria Musculoskeletal: No: Pain Skin: No Rash Neurologic: No: Weakness Psychiatric: Positive: Depression, Mood Disorder, Substance Abuse, No: Anxiety , Suicidal Ideations, Disorder of Thought, Homicidal Ideation Endocrine: No: Polydipsia Hematologic/Lymphatic: No: Easy Bruising Physical Exam Narrative GENERAL: Well-developed, well-nourished in no apparent distress. Nontoxic appearing. Patient smells of EtOH appears intoxicated. HEAD: Normocephalic, atraumatic. EYES: Pupils equal round and reactive. Extraocular motions intact. No scleral icterus. No injection or drainage in the right eye. The left eye is injected. It is tearing. Alcaine is instilled in the left eye with resolution of his pain. The eyelids are flipped and no foreign body seen. Fluorescein stain reveals a corneal abrasion at the 12:00 hour. ENT: Nose clear. Throat without erythema, tonsillar hypertrophy or exudate. Uvula midline. Airway patent. NECK: Trachea midline. Supple, nontender, moves head freely. No central bony tenderness or spasm. CARDIOVASCULAR: Regular rate and rhythm without murmurs, gallops, or rubs. RESPIRATORY: Clear to auscultation. Breath sounds equal bilaterally. No wheezes , rales, or rhonchi. GASTROINTESTINAL: Abdomen soft, non-tender, nondistended. No hepato-splenomegaly , or palpable masses. No guarding. EXTREMITIES: No clubbing, cyanosis, or edema. He has a Velcro wrist splint on his right wrist BACK: Nontender without deformity. No flank tenderness. NEUROLOGICAL: Awake, alert and oriented x 3 .Cranial nerves grossly intact. Motor and sensory grossly within normal limits. Normal speech. Data Data Last Documented VS Vital Signs Date Time Temp Pulse Resp B/P (MAP) Pulse Ox O2 Delivery O2 Flow Rate FiO2 01/31/18 22:49 97.8 110 20 142/86 (104) 98 Orders Orders Proparacaine 0.5% Opth Soln (Alcaine 0.5 (01/31/18 23:15) Tetanus/Diphtheria Tox Adult (Tetanus/Di (01/31/18 23:15) MDM Medical Decision Making Medical Screen Exam Complete: Yes Emergency Medical Condition: Yes Medical Record Reviewed: Yes Differential Diagnosis MDM: High Differential diagnoses: traumatic globe injury, foreign body, corneal abrasion, corneal ulcer, Alcohol abuse, alcohol intoxication Narrative Course Cliff Greenfrancie has been contacted. There are no detox beds available And there is a waiting list. The patient will be allowed to sleep it off here in the ER and will be discharged in the morning when he is sober. This is left eye corneal abrasion, alcohol intoxication, chronic alcohol abuse Diagnosis Primary Impression: Left corneal abrasion Additional Impressions: Alcohol intoxication Chronic alcohol abuse Referrals: Marissa Bonds MD 2 days [facility] day Patient Instructions: General Instructions Additional Instructions: Rest. Increase fluids. Avoid alcohol. Avoid illegal substances. Follow-up with [facility] for detox. Do not operate a car or any heavy machinery under the influence of alcohol or drugs. Follow-up with a medical doctor this week. Erythromycin ointment. Follow-up with Dr. Bonds the pc tech in the next 2 days. Return to the ER for emergencies Med/Other Pt SpecificInfo: Prescription(s) given Disposition: 01 DISCHARGE HOME Condition: Stable Alvarado Antunez Jan 31, 2018 23:37
[2018-01-31] MEDS ORDERED: ERYTOIN10 LEFT EYE (23:38)
== END 2018-02-01 04:49 | disposition home or self-care (01) ==
LOC: NEPD 22:35
DX: S05.02XA Injury of conjunctiva and corneal abrasion without foreign body, left eye, initial encounter (principal); F10.229 Alcohol dependence with intoxication, unspecified; F17.200 Nicotine dependence, unspecified, uncomplicated; Z23 Encounter for immunization; Z86.59 Personal history of other mental and behavioral disorders; Z87.820 Personal history of traumatic brain injury; X58.XXXA Exposure to other specified factors, initial encounter
CPT/HCPCS: 90471; 90714

== ENCOUNTER 2018-02-09 05:41 | Emergency (ER) | payer SELFPAY ==
[~2018-02-09] VITALS: Ht 182.9 cm; Wt 80.0 kg
[~2018-02-09 05:41] MED LIST changes: -BACT800T5 PO; -CEPH-460 PO; +ERYTOIN10 LEFT EYE
[2018-02-09 05:47] VITALS: BP 115/76; PULSE 100; RESP 18; TEMP 99; O2SAT 97
[2018-02-09] MEDS ORDERED: SODIUM CHLOR 0.9% 1000 ML INJ 1,000 ML IV ONE (05:52)
--- NOTE | 2018-02-09 05:59 | PD ---
HPI Chief Complaint: GI Complaint Time Seen by Provider: 05:52 Travel History International Travel<30 days: No Contact w/Intl Traveler<30days: No Traveled to known affect area: No History of Present Illness HPI 47-year-old male presents to the emergency department by EMS transport from home for complaint of 5 days of nausea vomiting diarrhea and abdominal pain. Patient states she has had bilious emesis and blood in his stool. Patient states he rarely takes any medications except for perhaps an aspirin. Patient denies drinking alcohol or substance use. According to refinery operator report he refused IV access for any intervention. Patient here frequently states wait a minute wait a minute and then provide some history the entire time shaking his hands and complaining about his abdominal pain. No reported fever or chills. No report of chest pain or shortness of breath. Patient has been seen numerous times in the emergency department for various complaints and alcohol-related issues. Patient reportedly rates his pain 7/10 in intensity. Patient is unable to identify exacerbating or alleviating factors. Denies dietary indiscretion well water ingestion or foreign travel PFSH Past Medical History Narrative Medical Anxiety depression traumatic brain injury alcohol use tobacco use; nursing notes reviewed Hx Anticoagulant Therapy: No Anxiety: Yes Depression: Yes Cancer: No Cardiovascular Problems: No Diminished Hearing: No Endocrine: No Gastrointestinal Disorders: No Genitourinary: No Hepatitis: No Hiatal Hernia: No Hypertension: No Immune Disorder: No Medical other: No Musculoskeletal: No Neurologic: Yes (H/O TBI) Psychiatric: Yes Reproductive: No Respiratory: No Immunizations Current: Yes Thyroid Disease: No Tetanus Vaccination: < 5 Years Influenza Vaccination: No Past Surgical History Abdominal Surgery: No AICD: No Body Medical Devices: NONE Cardiac Surgery: No Ear Surgery: No Endocrine Surgery: No Eye Surgery: No Genitourinary Surgery: No Joint Replacement: No Neurologic Surgery: No Oral Surgery: Yes (TONSILLECTOMY ) Pacemaker: No Thoracic Surgery: No Tonsillectomy: Yes Other Surgery: Yes (right arm 2015, knee, wrist) Social History Alcohol Use: Yes (8-10 beers/day) Tobacco Use: Yes (1 PPD) Substance Use: No Allergies-Medications (Allergen,Severity, Reaction): Coded Allergies: No Known Allergies (Verified Allergy, Unknown, 02/09/18) Reported Meds & Prescriptions Reported Meds & Active Scripts Active No Active Prescriptions or Reported Medications Review of Systems Except as stated in HPI: all other systems reviewed are Neg General / Constitutional: No: Fever, Chills HENT: No: Congestion Cardiovascular: No: Chest Pain or Discomfort Respiratory: No: Shortness of Breath Gastrointestinal: Positive: Nausea, Vomiting, Diarrhea, Abdominal Pain, Hematochezia Genitourinary: No: Dysuria, Flank Pain Musculoskeletal: No: Myalgias, Arthralgias Skin: No Rash Neurologic: No: Weakness, Dizziness, Syncope Psychiatric: No: Anxiety, Depression, Suicidal Ideations, Homicidal Ideation Endocrine: No: Heat Intolerance, Cold Intolerance Hematologic/Lymphatic: No: Easy Bruising Physical Exam Narrative GENERAL: Well-developed well-nourished male no acute distress no respiratory distress; awake oriented to person place time and events SKIN: Warm and dry. HEAD: Normocephalic. EYES: No scleral icterus. No injection or drainage. NECK: Supple, trachea midline. No JVD or lymphadenopathy. CARDIOVASCULAR: Regular rate and rhythm without murmurs, gallops, or rubs. RESPIRATORY: Breath sounds equal bilaterally. No accessory muscle use. GASTROINTESTINAL: Abdomen soft, diffusely tender to palpation without guarding or rebound, nondistended. MUSCULOSKELETAL: No cyanosis, or edema. BACK: Nontender without obvious deformity. No CVA tenderness. Data Data Last Documented VS Vital Signs Date Time Temp Pulse Resp B/P (MAP) Pulse Ox O2 Delivery O2 Flow Rate FiO2 02/09/18 06:00 97 02/09/18 05:47 99.0 100 18 115/76 (89) Orders Orders Complete Blood Count With Diff (02/09/18 05:52) Comprehensive Metabolic Panel (02/09/18 05:52) Urinalysis - C+S If Indicated (02/09/18 05:52) Lipase (02/09/18 05:52) Iv Access Insert/Monitor (02/09/18 05:52) Ecg Monitoring (02/09/18 05:52) Oximetry (02/09/18 05:52) Ondansetron Inj (Zofran Inj) (02/09/18 06:00) Sodium Chlor 0.9% 1000 Ml Inj (Ns 1000 M (02/09/18 05:52) Sodium Chloride 0.9% Flush (Ns Flush) (02/09/18 06:00) Chest, Single Ap (02/09/18 05:52) Magnesium (Mg) (02/09/18 05:52) Drug Screen, Random Urine (02/09/18 05:52) Alcohol (Ethanol) (02/09/18 05:52) Ct Abd/Pel W Iv Contrast(Rout) (02/09/18 ) Pantoprazole Inj (Protonix Inj) (02/09/18 06:45) Labs Laboratory Tests Test 02/09/18 06:00 White Blood Count 6.6 TH/MM3 Red Blood Count 4.34 MIL/MM3 Hemoglobin 14.8 GM/DL Hematocrit 44.3 % Mean Corpuscular Volume 102.2 FL Mean Corpuscular Hemoglobin 34.2 PG Mean Corpuscular Hemoglobin Concent 33.5 % Red Cell Distribution Width 12.1 % Platelet Count 200 TH/MM3 Mean Platelet Volume 7.1 FL Neutrophils (%) (Auto) 67.1 % Lymphocytes (%) (Auto) 18.7 % Monocytes (%) (Auto) 12.9 % Eosinophils (%) (Auto) 0.3 % Basophils (%) (Auto) 1.0 % Neutrophils # (Auto) 4.5 TH/MM3 Lymphocytes # (Auto) 1.2 TH/MM3 Monocytes # (Auto) 0.8 TH/MM3 Eosinophils # (Auto) 0.0 TH/MM3 Basophils # (Auto) 0.1 TH/MM3 CBC Comment DIFF FINAL Differential Comment Blood Urea Nitrogen 9 MG/DL Creatinine 0.80 MG/DL Random Glucose 119 MG/DL Total Protein 7.9 GM/DL Albumin 3.7 GM/DL Calcium Level 8.1 MG/DL Magnesium Level 1.9 MG/DL Alkaline Phosphatase 79 U/L Aspartate Amino Transf (AST/SGOT) 143 U/L Alanine Aminotransferase (ALT/SGPT) 280 U/L Total Bilirubin 0.6 MG/DL Sodium Level 136 MEQ/L Potassium Level 4.1 MEQ/L Chloride Level 97 MEQ/L Carbon Dioxide Level 25.3 MEQ/L Anion Gap 14 MEQ/L Estimat Glomerular Filtration Rate 103 ML/MIN Lipase 815 U/L Ethyl Alcohol Level 317 MG/DL MDM Medical Decision Making Medical Screen Exam Complete: Yes Emergency Medical Condition: Yes Medical Record Reviewed: Yes Interpretation(s) CBC & BMP Diagram 02/09/18 06:00 Total Protein 7.9, Albumin 3.7, Calcium Level 8.1 L, Magnesium Level 1.9, Alkaline Phosphatase 79, Aspartate Amino Transf (AST/SGOT) 143 H, Alanine Aminotransferase (ALT/SGPT) 280 H, Total Bilirubin 0.6 Vital Signs Date Time Temp Pulse Resp B/P (MAP) Pulse Ox O2 Delivery O2 Flow Rate FiO2 02/09/18 06:00 97 02/09/18 05:47 99.0 100 18 115/76 (89) 97 lipase: 815, elevated Differential Diagnosis Vomiting diarrhea, gastroenteritis, alcohol withdrawal, electrolyte disturbance , gastritis, peptic ulcer disease, pancreatitis, choledocholithiasis, colitis, diverticulitis, kenzie, mood disorder Narrative Course IV access obtained specimens collected and sent for resulting patient administered 1 L normal saline Zofran 4 mg IV Patient identified to have elevated lipase and transaminases suspect mild pancreatitis with alcohol hepatitis/gastritis patient given Protonix additional IV fluids and CT abdomen pelvis ordered to evaluate pancreas and gallbladder/ choledocholithiasis, as well as, for colitis with complaint of nausea vomiting and diarrhea with some intermittent bloody stool. Care signed over to oncoming physician Diagnosis Primary Impression: Gastroenteritis Additional Impression: Elevated lipase Scripts No Active Prescriptions or Reported Meds Gilma Stephenson MD Feb 09, 2018 05:59
[2018-02-09 06:00] VITALS: O2SAT 97
[2018-02-09] MEDS ORDERED: SODIUM CHLORIDE 0.9% FLUSH 10 ML FLUSH IVF PRN (06:00)
[2018-02-09] MEDS ORDERED: ONDANSETRON HCL 4 MG/2 ML VIAL IV PUSH ONE (06:00)
[2018-02-09 06:10] LABS: AUTOMATED NEUTROPHIL # 4.5 TH/MM3 (1.8-7.7); BASOPHIL # 0.1 TH/MM3 (0-0.2); EOSINOPHIL % 0.3 % (0.0-4.0); HEMATOCRIT 44.3 % (39.0-51.0); HEMOGLOBIN 14.8 GM/DL (13.0-17.0); LYMPH % 18.7 % (9.0-44.0); LYMPHOCYTE # 1.2 TH/MM3 (1.0-4.8); MEAN CELL VOLUME 102.2 FL (80.0-100.0); MEAN CORPUSCULAR HEMOGLOBIN 34.2 PG (27.0-34.0); MEAN CORPUSCULAR HGB CONC 33.5 % (32.0-36.0); MEAN PLATELET VOLUME 7.1 FL (7.0-11.0); MONO % 12.9 % (0.0-8.0); MONOCYTE # 0.8 TH/MM3 (0-0.9); NEUT % 67.1 % (16.0-70.0); PLATELET COUNT 200 TH/MM3 (150-450); RED BLOOD COUNT 4.34 MIL/MM3 (4.50-5.90); RED CELL DISTRIBUTION WIDTH 12.1 % (11.6-17.2); WHITE BLOOD COUNT 6.6 TH/MM3 (4.0-11.0)
[2018-02-09 06:17] LABS: CHLORIDE 97 MEQ/L (98-107); SODIUM (NA) 136 MEQ/L (136-145)
[2018-02-09 06:20] LABS: CALCIUM 8.1 MG/DL (8.5-10.1)
[2018-02-09 06:21] LABS: ALBUMIN 3.7 GM/DL (3.4-5.0); BICARBONATE 25.3 MEQ/L (21.0-32.0); BLOOD UREA NITROGEN 9 MG/DL (7-18); GLUCOSE,RANDOM 119 MG/DL (74-106); MAGNESIUM 1.9 MG/DL (1.5-2.5)
[2018-02-09 06:23] LABS: ALT (GPT) 280 U/L (12-78)
[2018-02-09 06:24] LABS: AST (GOT) 143 U/L (15-37); GLOMERULAR FILTRATION RATE 103 ML/MIN (>89)
[2018-02-09 06:25] LABS: TOTAL BILIRUBIN ADULT 0.6 MG/DL (0.2-1.0); TOTAL PROTEIN 7.9 GM/DL (6.4-8.2)
[2018-02-09 06:26] LABS: ALKALINE PHOSPHATASE 79 U/L (45-117)
--- NOTE | 2018-02-09 06:27 | RADRPT ---
EXAM DATE/TIME: 02/09/2018 06:10 [facility] COMPARISON: CHEST SINGLE AP, May 26, 2017, 19:03. INDICATIONS : Chest pain for 5 days MEDICAL HISTORY : None. SURGICAL HISTORY : None. ENCOUNTER: Initial ACUITY: 4 - 6 days PAIN SCORE: 8/10 LOCATION: Bilateral chest FINDINGS: A single view of the chest demonstrates the lungs to be symmetrically aerated without evidence of mas s, infiltrate or effusion. The cardiomediastinal contours are unremarkable. Osseous structures are intact. CONCLUSION: No acute disease. Fortino Victor MD on February 09, 2018 at 6:24 Board Certified Radiologist. This report was verified electronically.
[2018-02-09] MEDS ORDERED: PANTOPRAZOLE SODIUM 40 MG VIAL IV PUSH ONE (06:45)
[2018-02-09] MEDS ORDERED: IOHEXOL 350 MG/ML 10 ML VIAL (for RAD DIAG) IVCONTRAST ONE (07:04)
--- NOTE | 2018-02-09 07:25 | RADRPT ---
EXAM DATE/TIME: 02/09/2018 06:52 [facility] COMPARISON: No previous studies available for comparison. INDICATIONS : Abdominal pain. Nausea. Diarrhea. Vomiting. IV CONTRAST: 100 cc Omnipaque 350 (iohexol) IV ORAL CONTRAST: No oral contrast ingested. RADIATION DOSE: 7.56 CTDIvol (mGy) MEDICAL HISTORY : None SURGICAL HISTORY : None. ENCOUNTER: Initial ACUITY: 4 - 6 days PAIN SCALE: 7/10 LOCATION: Abdomen. TECHNIQUE: Volumetric scanning of the abdomen and pelvis was performed. Using automated exposure control and ad justment of the mA and/or kV according to patient size, radiation dose was kept as low as reasonably achievable to obtain optimal diagnostic quality images. DICOM format image data is available electro nically for review and comparison. FINDINGS: LOWER LUNGS: The visualized lower lungs are clear. LIVER: The liver is enlarged and demonstrates diffuse fatty infiltration. No focal mass is noted. There is no dilation of the biliary tree. No calcified gallstones. SPLEEN: Normal size without lesion. PANCREAS: Within normal limits. KIDNEYS: Normal in size and shape. There is no mass or hydronephrosis. There is a tiny calcified lower pole n onobstructing right renal calculus measuring 5 mm. ADRENAL GLANDS: Within normal limits. VASCULAR: There is no aortic aneurysm. BOWEL/MESENTERY: The stomach, small bowel, and colon demonstrate no acute abnormality. There is no free intraperitone al air or fluid. The appendix is normal. ABDOMINAL WALL: Within normal limits. RETROPERITONEUM: There is no lymphadenopathy. BLADDER: No wall thickening or mass. REPRODUCTIVE: Within normal limits. INGUINAL: There is no lymphadenopathy or hernia. MUSCULOSKELETAL: Within normal limits for patient age. CONCLUSION: 1. Enlarged fatty liver. 2. 5 mm calcified nonobstructing lower pole right renal calculus. Diego Chatman MD on February 09, 2018 at 7:22 Board Certified Radiologist. This report was verified electronically.
[2018-02-09 08:09] LABS: BILIRUBIN, URINE NEG (NEG); BLOOD, URINE NEG (NEG); GLUCOSE,URINE NEG (NEG); KETONE, URINE NEG (NEG); NITRITE,URINE NEG (NEG); PH, URINE 6.5 (5.0-8.5); URINE COLOR YELLOW (YELLW/STRAW); URINE LEUKOCYTE ESTERASE NEG (NEG)
[2018-02-09 08:22] LABS: SQUAMOUS EPITHELIAL CELL URINE 0-5 /hpf (0-5)
[2018-02-09] MEDS ORDERED: ZOFR4TAB3 SL (08:33)
--- NOTE | 2018-02-09 08:34 | PD ---
Physical Exam Date Seen by Provider: Feb 09, 2018 Time Seen by Provider: 07:00 Narrative Patient initially seen and evaluated by Dr. Stephenson, please see her comments for further details. He has been signed out to me at 7 AM awaiting CAT scan. Disposition was for discharge if CAT scan is unremarkable. Laboratory Tests Test 02/09/18 06:00 02/09/18 08:05 Red Blood Count 4.34 MIL/MM3 (4.50-5.90) Mean Corpuscular Volume 102.2 FL (80.0-100.0) Mean Corpuscular Hemoglobin 34.2 PG (27.0-34.0) Monocytes (%) (Auto) 12.9 % (0.0-8.0) Random Glucose 119 MG/DL (74-106) Calcium Level 8.1 MG/DL (8.5-10.1) Aspartate Amino Transf (AST/SGOT) 143 U/L (15-37) Alanine Aminotransferase (ALT/SGPT) 280 U/L (12-78) Chloride Level 97 MEQ/L (98-107) Lipase 815 U/L (73-393) Ethyl Alcohol Level 317 MG/DL (0-5) Last 24 hours Impressions Chest X-Ray 02/09/18 0552 Signed Impressions: Service Date/Time: Friday, February 09, 2018 06:10 - CONCLUSION: No acute disease. Fortino Victor MD Abdomen/Pelvis CT 02/09/18 0000 Signed Impressions: Service Date/Time: Friday, February 09, 2018 06:52 - CONCLUSION: 1. Enlarged fatty liver. 2. 5 mm calcified nonobstructing lower pole right renal calculus. Diego Chatman MD Lab work shows lipase of 800, AST and ALT are elevated as well, it is quite clear that he is having issues with alcohol intake. CAT scan did not show any signs of acute intra-abdominal processes. At this point, he did not have any further vomiting episodes in the ER. I have talked to him regarding findings and have noted that his alcohol intake is causing problems with his pancreas and his liver. I have talked him about stopping alcohol intake. I have recommended to him to follow-up with [facility] for further treatment. I will give him Zofran for nausea and vomiting. Return for any worsening in pain , vomiting, or new symptoms as needed. The plan has been discussed with the patient and he states understanding. Data Data Last Documented VS Vital Signs Date Time Temp Pulse Resp B/P (MAP) Pulse Ox O2 Delivery O2 Flow Rate FiO2 02/09/18 06:00 97 02/09/18 05:47 99.0 100 18 115/76 (89) Orders Orders Complete Blood Count With Diff (02/09/18 05:52) Comprehensive Metabolic Panel (02/09/18 05:52) Urinalysis - C+S If Indicated (02/09/18 05:52) Lipase (02/09/18 05:52) Iv Access Insert/Monitor (02/09/18 05:52) Ecg Monitoring (02/09/18 05:52) Oximetry (02/09/18 05:52) Ondansetron Inj (Zofran Inj) (02/09/18 06:00) Sodium Chlor 0.9% 1000 Ml Inj (Ns 1000 M (02/09/18 05:52) Sodium Chloride 0.9% Flush (Ns Flush) (02/09/18 06:00) Chest, Single Ap (02/09/18 05:52) Magnesium (Mg) (02/09/18 05:52) Drug Screen, Random Urine (02/09/18 05:52) Alcohol (Ethanol) (02/09/18 05:52) Ct Abd/Pel W Iv Contrast(Rout) (02/09/18 ) Pantoprazole Inj (Protonix Inj) (02/09/18 06:45) Iohexol 350 Inj (Omnipaque 350 Inj) (02/09/18 07:04) Ed Discharge Order (02/09/18 08:30) Labs Laboratory Tests Test 02/09/18 06:00 02/09/18 08:05 White Blood Count 6.6 TH/MM3 Red Blood Count 4.34 MIL/MM3 Hemoglobin 14.8 GM/DL Hematocrit 44.3 % Mean Corpuscular Volume 102.2 FL Mean Corpuscular Hemoglobin 34.2 PG Mean Corpuscular Hemoglobin Concent 33.5 % Red Cell Distribution Width 12.1 % Platelet Count 200 TH/MM3 Mean Platelet Volume 7.1 FL Neutrophils (%) (Auto) 67.1 % Lymphocytes (%) (Auto) 18.7 % Monocytes (%) (Auto) 12.9 % Eosinophils (%) (Auto) 0.3 % Basophils (%) (Auto) 1.0 % Neutrophils # (Auto) 4.5 TH/MM3 Lymphocytes # (Auto) 1.2 TH/MM3 Monocytes # (Auto) 0.8 TH/MM3 Eosinophils # (Auto) 0.0 TH/MM3 Basophils # (Auto) 0.1 TH/MM3 CBC Comment DIFF FINAL Differential Comment Blood Urea Nitrogen 9 MG/DL Creatinine 0.80 MG/DL Random Glucose 119 MG/DL Total Protein 7.9 GM/DL Albumin 3.7 GM/DL Calcium Level 8.1 MG/DL Magnesium Level 1.9 MG/DL Alkaline Phosphatase 79 U/L Aspartate Amino Transf (AST/SGOT) 143 U/L Alanine Aminotransferase (ALT/SGPT) 280 U/L Total Bilirubin 0.6 MG/DL Sodium Level 136 MEQ/L Potassium Level 4.1 MEQ/L Chloride Level 97 MEQ/L Carbon Dioxide Level 25.3 MEQ/L Anion Gap 14 MEQ/L Estimat Glomerular Filtration Rate 103 ML/MIN Lipase 815 U/L Ethyl Alcohol Level 317 MG/DL Urine Collection Type CLEAN CATCH Urine Color YELLOW Urine Turbidity CLEAR Urine pH 6.5 Urine Specific [place] LESS/EQUAL 1.005 Urine Protein NEG mg/dL Urine Glucose (UA) NEG mg/dL Urine Ketones NEG mg/dL Urine Occult Blood NEG Urine Nitrite NEG Urine Bilirubin NEG Urine Urobilinogen 0.2 MG/DL Urine Leukocyte Esterase NEG Urine Squamous Epithelial Cells 0-5 /hpf Microscopic Urinalysis Comment CULT NOT INDICATED Urine Opiates Screen NEG Urine Barbiturates Screen NEG Urine Amphetamines Screen NEG Urine Benzodiazepines Screen NEG Urine Cocaine Screen NEG Urine Cannabinoids Screen NEG [facility] Medical Record Reviewed: Yes Supervised Visit with EUGENE: No Diagnosis Primary Impression: Gastroenteritis Additional Impressions: Elevated lipase Alcohol dependence Referrals: [facility] Med/Other Pt SpecificInfo: Prescription(s) given Scripts Ondansetron Odt (Zofran Odt) 4 Mg Tab 4 MG SL Q6HR Y for Nausea/Vomiting, #7 TAB 0 Refills Prov: Cara Melton MD 02/09/18 Disposition: DISCHARGE HOME Condition: Stable Cara Melton MD Feb 09, 2018 08:34
== END 2018-02-09 08:45 | disposition left against medical advice (07) ==
LOC: PHED 05:41
DX: K52.9 Noninfective gastroenteritis and colitis, unspecified (principal); R79.89 Other specified abnormal findings of blood chemistry; F10.20 Alcohol dependence, uncomplicated; R10.9 Unspecified abdominal pain; K92.1 Melena; Y90.8 Blood alcohol level of 240 mg/100 ml or more; F17.200 Nicotine dependence, unspecified, uncomplicated; Z87.820 Personal history of traumatic brain injury; Z86.59 Personal history of other mental and behavioral disorders
CPT/HCPCS: 71045; 74177; 80053; 80307; 81001; 83690; 83735; 85025; 96361; 96374; 96375; 99285; C9113; J2405; J7030; Q9967

== ENCOUNTER 2018-02-10 09:04 | Observation (INO) | payer SELFPAY ==
[~2018-02-10] VITALS: Ht 182.9 cm; Wt 77.1 kg
[~2018-02-10 09:04] MED LIST changes: -ERYTOIN10 LEFT EYE; +ZOFR4TAB3 SL
[2018-02-10 09:13] VITALS: BP 149/77; PULSE 120; RESP 18; TEMP 98.5; O2SAT 98
[2018-02-10 10:44] VITALS: BP 152/93; PULSE 98; RESP 24; O2SAT 99
[2018-02-10] MEDS ORDERED: SODIUM CHLOR 0.9% 1000 ML INJ 1,000 ML IV SCH (10:47)
[2018-02-10] MEDS ORDERED: KETOROLAC TROMETHAMINE 30 MG/ML (IVP) VIAL IV PUSH ONE (11:00)
[2018-02-10] MEDS ORDERED: ONDANSETRON HCL 4 MG/2 ML VIAL IVP ONE (11:00)
[2018-02-10] MEDS ORDERED: SODIUM CHLORIDE 0.9% FLUSH 10 ML FLUSH IV FLUSH PRN ×2 (11:00→11:15)
[2018-02-10] MEDS ORDERED: LORazepam 2 MG/ML VIAL IV PUSH ONE (11:00)
[2018-02-10] MEDS ORDERED: LORazepam 2 MG/ML VIAL IV PUSH PRN ×4 (11:15→12:00)
[2018-02-10] MEDS ORDERED: FLUMAZENIL 0.5 MG/5 ML VIAL IV PUSH PRN (11:15)
[2018-02-10] MEDS ORDERED: NALOXONE HCL 0.4 MG/ML AMP IV PUSH PRN ×2 (11:15)
[2018-02-10] MEDS ORDERED: SENNOSIDES 8.6 MG TAB PO PRN (11:15)
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
[2018-02-10 11:33] LABS: ALBUMIN 3.8 GM/DL (3.4-5.0); ALT (GPT) 279 U/L (12-78); AST (GOT) 165 U/L (15-37); BICARBONATE 28.3 MEQ/L (21.0-32.0); BLOOD UREA NITROGEN 8 MG/DL (7-18); CALCIUM 8.6 MG/DL (8.5-10.1); CHLORIDE 101 MEQ/L (98-107); GLOMERULAR FILTRATION RATE 90 ML/MIN (>89); GLUCOSE,RANDOM 135 MG/DL (74-106); SODIUM (NA) 140 MEQ/L (136-145)
[2018-02-10 11:36] LABS: ALKALINE PHOSPHATASE 89 U/L (45-117); TOTAL BILIRUBIN ADULT 1.1 MG/DL (0.2-1.0); TOTAL PROTEIN 7.6 GM/DL (6.4-8.2)
[2018-02-10] MEDS: SODIUM CHLOR 0.9% 1000 ML INJ 1,000 ML IV SCH ×2 (11:59→20:00)
[2018-02-10] MEDS ORDERED: LACTULOSE SYRUP 20 GM/30 ML CUP PO PRN (12:00)
[2018-02-10] MEDS ORDERED: MAGNESIUM HYDROXIDE SUSP 30 ML CUP PO PRN (12:00)
[2018-02-10] MEDS ORDERED: ZOLPIDEM TARTRATE 5 MG TAB PO PRN (12:00)
[2018-02-10] MEDS ORDERED: ONDANSETRON HCL 4 MG/2 ML VIAL IVP PRN (12:00)
[2018-02-10] MEDS ORDERED: MORPHINE SULFATE 2 MG/ML INJ IV PUSH PRN (12:00)
[2018-02-10] MEDS ORDERED: ACETAMINOPHEN 325 MG TAB PO PRN (12:00)
[2018-02-10] MEDS ORDERED: BISACODYL 10 MG SUPP RECTAL PRN (12:00)
[2018-02-10] MEDS ORDERED: LORazepam 2 MG TAB PO PRN (12:00)
[2018-02-10] MEDS ORDERED: ENALAPRILAT 1.25 MG/ML VIAL IV PUSH PRN (12:00)
--- NOTE | 2018-02-10 12:11 | PD ---
HPI Chief Complaint: Abdominal Pain Time Seen by Provider: 10:32 Travel History International Travel<30 days: No Contact w/Intl Traveler<30days: No History of Present Illness HPI This is a 47-year-old male with a history of alcohol abuse, presents here with complaints of abdominal pain and nausea vomiting. Patient also reports going through alcohol withdrawal. Patient was seen yesterday at [facility]. He was diagnosed with pancreatitis then. The patient states he went to [facility] for alcohol abuse however they sent him here for detox and treatment for his pancreatitis. The patient denies any fevers, chills. There is no reported blood in his stool or emesis. PFSH Past Medical History Hx Anticoagulant Therapy: No Anxiety: Yes Depression: Yes Cancer: No Cardiovascular Problems: No Chemotherapy: No Cerebrovascular Accident: No Diabetes: No Diminished Hearing: No Endocrine: No Gastrointestinal Disorders: No Genitourinary: No Hepatitis: No Hiatal Hernia: No Hypertension: No Immune Disorder: No Musculoskeletal: No Neurologic: Yes (H/O TBI) Psychiatric: Yes Reproductive: No Respiratory: No Immunizations Current: Yes Thyroid Disease: No Past Surgical History Abdominal Surgery: No AICD: No Body Medical Devices: NONE Cardiac Surgery: No Ear Surgery: No Endocrine Surgery: No Eye Surgery: No Genitourinary Surgery: No Joint Replacement: No Neurologic Surgery: No Oral Surgery: Yes (TONSILLECTOMY ) Pacemaker: No Thoracic Surgery: No Tonsillectomy: Yes Other Surgery: Yes (right arm 2015, knee, wrist) Social History Alcohol Use: Yes (8-10 beers/day) Tobacco Use: Yes (1 PPD) Substance Use: No Allergies-Medications (Allergen,Severity, Reaction): Coded Allergies: cephalexin (Verified Allergy, Unknown, 02/10/18) MAKES ME VOMIT Reported Meds & Prescriptions Reported Meds & Active Scripts Active No Active Prescriptions or Reported Medications Review of Systems Except as stated in HPI: all other systems reviewed are Neg General / Constitutional: No: Fever, Chills HENT: No: Headaches, Lightheadedness Cardiovascular: No: Chest Pain or Discomfort Respiratory: No: Cough Gastrointestinal: Positive: Nausea, Vomiting, Abdominal Pain, No: Diarrhea Genitourinary: Positive: Frequency, No: Dysuria Musculoskeletal: Positive: Weakness, No: Pain Neurologic: Positive: Weakness, Tremor, Other (Jittery nerves), No: Headache Psychiatric: Positive: Substance Abuse Physical Exam Narrative GENERAL: Well-developed well-nourished male who appears to be tremulous. Patient is in no acute respiratory distress SKIN: Focused skin assessment warm/dry. HEAD: Atraumatic. Normocephalic. EYES: Pupils equal and round. No scleral icterus. No injection or drainage. ENT: No nasal bleeding or discharge. Mucous membranes pink and moist. NECK: Trachea midline. Supple. CARDIOVASCULAR: Sinus tach rate of 101. No murmur appreciated. RESPIRATORY: No accessory muscle use. Clear to auscultation. Breath sounds equal bilaterally. GASTROINTESTINAL: Abdomen soft, nondistended. Patient has tenderness to palpation in the epigastric area. No rebound. MUSCULOSKELETAL: No obvious deformities. No clubbing. No cyanosis. No edema. NEUROLOGICAL: Awake and alert. Patient is tremulous. No obvious cranial nerve deficits. Motor grossly within normal limits. Normal speech. Data Data Last Documented VS Vital Signs Date Time Temp Pulse Resp B/P (MAP) Pulse Ox O2 Delivery O2 Flow Rate FiO2 02/10/18 10:44 98 24 152/93 (112) 99 Room Air 02/10/18 09:13 98.5 Orders Orders Comprehensive Metabolic Panel (02/10/18 10:47) Lipase (02/10/18 10:47) Iv Access Insert/Monitor (02/10/18 10:47) Ecg Monitoring (02/10/18 10:47) Oximetry (02/10/18 10:47) Ondansetron Inj (Zofran Inj) (02/10/18 11:00) Sodium Chlor 0.9% 1000 Ml Inj (Ns 1000 M (02/10/18 10:47) Sodium Chloride 0.9% Flush (Ns Flush) (02/10/18 11:00) Lorazepam Inj (Ativan Inj) (02/10/18 11:00) Ketorolac Inj (Toradol Inj) (02/10/18 11:00) Place In Observation (02/10/18 ) Code Status (02/10/18 11:13) Vital Signs (Adult) Q4H (02/10/18 11:13) Neuro Checks Q4H (02/10/18 11:13) Activity Oob With Assistance (02/10/18 11:13) Bedside Glucose AIMEE.CSUGAR (02/10/18 11:13) Sap Ppm Consultant / Telemetry .CONTINUOUS (02/10/18 11:13) Intake + Output AIMEE.QSHIFT (02/10/18 11:13) Diet Npo (02/10/18 Lunch) Sodium Chlor 0.9% 1000 Ml Inj (Ns 1000 M (02/10/18 12:00) Sodium Chloride 0.9% Flush (Ns Flush) (02/10/18 11:15) Sodium Chloride 0.9% Flush (Ns Flush) (02/10/18 21:00) Acetaminophen (Tylenol) (02/10/18 12:00) Ondansetron Inj (Zofran Inj) (02/10/18 12:00) Comprehensive Metabolic Panel (02/11/18 06:00) Complete Blood Count With Diff (02/11/18 06:00) Urinalysis - C+S If Indicated (02/10/18 11:13) Lipase (02/11/18 06:00) Pt Request For Service (02/10/18 11:13) Case Management Consult (02/10/18 11:13) Zolpidem (Ambien) (02/10/18 12:00) Enoxaparin Inj (Lovenox Inj) (02/10/18 12:00) Scd Bilateral/Knee High AIMEE.BID (02/10/18 11:13) Naloxone Inj (Narcan Inj) (02/10/18 11:15) Docusate Sodium-Senna (Fozia-Colace) (02/10/18 21:00) Magnesium Hydroxide Liq (Milk Of Magnesi (02/10/18 12:00) Sennosides (Senokot) (02/10/18 11:15) Bisacodyl Supp (Dulcolax Supp) (02/10/18 12:00) Lactulose Liq (Lactulose Liq) (02/10/18 12:00) Alcohol Withdrawal Asmt-Ciwa Q4HX18 (02/10/18 11:13) Flumazenil Inj (Romazicon Inj) (02/10/18 11:15) Lorazepam (Ativan) (02/10/18 11:15) Lorazepam Inj (Ativan Inj) (02/10/18 11:15) Lorazepam (Ativan) (02/10/18 12:00) Lorazepam Inj (Ativan Inj) (02/10/18 12:00) Lorazepam Inj (Ativan Inj) (02/10/18 12:00) Lorazepam Inj (Ativan Inj) (02/10/18 11:15) Multivitamin Inj (Mvi-12 Inj)... (02/10/18 13:00) Ketorolac Inj (Toradol Inj) (02/10/18 17:00) Ketorolac Inj (Toradol Inj) (02/10/18 17:00) Morphine Inj (Morphine Inj) (02/10/18 12:00) Naloxone Inj (Narcan Inj) (02/10/18 11:15) Troponin I (02/10/18 11:29) Ckmb (Isoenzyme) Profile (02/10/18 11:29) Creatine Kinase (Cpk) (02/10/18 11:29) Drug Screen, Random Urine (02/10/18 11:29) Admit Order (Ed Use Only) (02/10/18 11:32) CKMB (02/10/18 10:50) CKMB% (02/10/18 10:50) Labs Laboratory Tests Test 02/10/18 10:50 Blood Urea Nitrogen 8 MG/DL Creatinine 0.90 MG/DL Random Glucose 135 MG/DL Total Protein 7.6 GM/DL Albumin 3.8 GM/DL Calcium Level 8.6 MG/DL Alkaline Phosphatase 89 U/L Aspartate Amino Transf (AST/SGOT) 165 U/L Alanine Aminotransferase (ALT/SGPT) 279 U/L Total Bilirubin 1.1 MG/DL Sodium Level 140 MEQ/L Potassium Level 4.1 MEQ/L Chloride Level 101 MEQ/L Carbon Dioxide Level 28.3 MEQ/L Anion Gap 11 MEQ/L Estimat Glomerular Filtration Rate 90 ML/MIN Total Creatine Kinase 530 U/L Creatine Kinase MB 3.2 NG/ML Creatine Kinase MB % 0.6 % Troponin I LESS THAN 0.02 NG/ML Lipase 1099 U/L MDM Medical Decision Making Medical Screen Exam Complete: Yes Emergency Medical Condition: Yes Differential Diagnosis Worsening pancreatitis versus alcohol withdrawal versus metabolic derangement Narrative Course 47-year-old male with history of alcohol abuse, presents here with abdominal pain, nausea vomiting, alcohol withdrawal symptoms. Patient is wishing to get into alcohol rehab however they sent him here for acute withdrawals as well as worsening pancreatitis. Patient's lipase has increased from 800-1000 over the last 24 hours. He will be admitted to the hospital for bowel rest and withdrawal symptoms. Case was discussed with Dr. Wilkes, senior resident for Dr. Adeel Cotto the attending. Diagnosis Primary Impression: Alcoholic pancreatitis Qualified Codes: K85.20 - Alcohol induced acute pancreatitis without necrosis or infection Additional Impressions: Alcohol abuse Alcohol withdrawal Elevated liver enzymes Admitting Information Admitting Physician Requests: Admit Scripts No Active Prescriptions or Reported Meds Adin Werner MD Feb 10, 2018 12:11
[2018-02-10 12:27] LABS: AUTOMATED NEUTROPHIL # 6.1 TH/MM3 (1.8-7.7); BASOPHIL % 0.4 % (0.0-2.0); EOSINOPHIL % 0.2 % (0.0-4.0); HEMOGLOBIN 14.7 GM/DL (13.0-17.0); LYMPH % 15.2 % (9.0-44.0); LYMPHOCYTE # 1.3 TH/MM3 (1.0-4.8); MEAN CELL VOLUME 105.3 FL (80.0-100.0); MEAN CORPUSCULAR HEMOGLOBIN 36.9 PG (27.0-34.0); MEAN CORPUSCULAR HGB CONC 35.1 % (32.0-36.0); MEAN PLATELET VOLUME 8.6 FL (7.0-11.0); MONO % 10.9 % (0.0-8.0); MONOCYTE # 0.9 TH/MM3 (0-0.9); NEUT % 73.3 % (16.0-70.0); PLATELET COUNT 184 TH/MM3 (150-450); RED BLOOD COUNT 3.99 MIL/MM3 (4.50-5.90); WHITE BLOOD COUNT 8.4 TH/MM3 (4.0-11.0)
[2018-02-10 12:35] LABS: BACTERIA, URINE OCC /hpf; BILIRUBIN, URINE NEG (NEG); BLOOD, URINE SMALL (NEG); CALCIUM OXALATE CRYSTALS,URINE MOD /hpf; GLUCOSE,URINE 1000 mg/dL (NEG); HYALINE CAST, URINE 10 /lpf (RARE); KETONE, URINE NEG (NEG); MUCUS URINE MANY /lpf (OCC); NITRITE,URINE NEG (NEG); PH, URINE 5.5 (5.0-8.5); SQUAMOUS EPITHELIAL CELL URINE <1 /hpf (0-5); URINE LEUKOCYTE ESTERASE NEG (NEG)
[2018-02-10 12:38] LABS: URINE COLOR LIGHT-BROWN (YELLW/STRAW)
[2018-02-10] MEDS ORDERED: MULTIVITAMIN INJ 10 ML, THIAMINE INJ 100 MG, FOLIC ACID INJ 1 MG in DEXT 5%-NACL 0.9% 5... IV SCH (13:00)
[2018-02-10] MEDS: ENOXAPARIN SODIUM 40 MG/0.4 ML SYRINGE SQ SCH (13:02)
[2018-02-10] MEDS: NICOTINE 21 MG/24 HR PATCH T-DERMAL SCH (13:02)
[2018-02-10 13:55] VITALS: BP 128/70; PULSE 82; RESP 19; TEMP 98.8; O2SAT 97
[2018-02-10] MEDS ORDERED: KETOROLAC TROMETHAMINE 30 MG/ML (IVP) VIAL IV PUSH PRN (17:00)
[2018-02-10] MEDS: KETOROLAC TROMETHAMINE 30 MG/ML (IVP) VIAL IV PUSH PRN (19:02)
[2018-02-10 20:00] VITALS: BP 133/73; PULSE 81; RESP 20; TEMP 98.3; O2SAT 99
--- NOTE | 2018-02-10 20:00 | EKG ---
Date Performed: 02/10/2018 Time Performed: 12:19:11 PTAGE: 47 years EKG: Sinus rhythm NONSPECIFIC T-WAVE ABNORMALITY BORDERLINE ECG Since the PREVIOUS TRACING , no significant change noted PREVIOUS TRACIN04/03/2017 12.06 DOCTOR: More Cabral Interpretating Date/Time 02/10/2018 19:58:28
[2018-02-10] MEDS: SODIUM CHLORIDE 0.9% FLUSH 10 ML FLUSH IV FLUSH SCH (21:00)
[2018-02-10] MEDS: DOCUSATE SODIUM 50 MG/SENNA 8.6 MG TAB PO SCH (21:00)
[2018-02-10] MEDS ORDERED: REMOVE OLD PATCH T-DERMAL SCH (21:00)
[2018-02-10] MEDS: LORazepam 1 MG TAB PO PRN (21:04)
[2018-02-11] VITALS: BP 136/82; PULSE 83; RESP 20; TEMP 98.4; O2SAT 99
[2018-02-11 00:09] VITALS: PULSE 73
[2018-02-11] MEDS: KETOROLAC TROMETHAMINE 30 MG/ML (IVP) VIAL IV PUSH PRN ×2 (00:35→08:38)
[2018-02-11] MEDS: LORazepam 1 MG TAB PO PRN (00:47)
[2018-02-11] MEDS: SODIUM CHLOR 0.9% 1000 ML INJ 1,000 ML IV SCH (02:01)
[2018-02-11 03:42] VITALS: PULSE 59
[2018-02-11 07:49] LABS: AUTOMATED NEUTROPHIL # 4.2 TH/MM3 (1.8-7.7); BASOPHIL % 0.5 % (0.0-2.0); EOSINOPHIL # 0.1 TH/MM3 (0-0.4); EOSINOPHIL % 1.7 % (0.0-4.0); HEMATOCRIT 39.2 % (39.0-51.0); HEMOGLOBIN 13.4 GM/DL (13.0-17.0); LYMPH % 27.3 % (9.0-44.0); LYMPHOCYTE # 1.9 TH/MM3 (1.0-4.8); MEAN CELL VOLUME 105.1 FL (80.0-100.0); MEAN CORPUSCULAR HEMOGLOBIN 36.1 PG (27.0-34.0); MEAN CORPUSCULAR HGB CONC 34.3 % (32.0-36.0); MEAN PLATELET VOLUME 8.9 FL (7.0-11.0); MONO % 9.2 % (0.0-8.0); MONOCYTE # 0.6 TH/MM3 (0-0.9); NEUT % 61.3 % (16.0-70.0); PLATELET COUNT 152 TH/MM3 (150-450); RED BLOOD COUNT 3.73 MIL/MM3 (4.50-5.90); RED CELL DISTRIBUTION WIDTH 12.8 % (11.6-17.2); WHITE BLOOD COUNT 6.8 TH/MM3 (4.0-11.0)
[2018-02-11 08:18] LABS: ALT (GPT) 209 U/L (12-78); AST (GOT) 90 U/L (15-37); BLOOD UREA NITROGEN 4 MG/DL (7-18); CALCIUM 8.2 MG/DL (8.5-10.1); CHLORIDE 105 MEQ/L (98-107); CREATININE 0.67 MG/DL (0.60-1.30); GLOMERULAR FILTRATION RATE 127 ML/MIN (>89); GLUCOSE,RANDOM 82 MG/DL (74-106); SODIUM (NA) 140 MEQ/L (136-145)
[2018-02-11 08:20] LABS: ALKALINE PHOSPHATASE 62 U/L (45-117); TOTAL BILIRUBIN ADULT 1.7 MG/DL (0.2-1.0); TOTAL PROTEIN 6.2 GM/DL (6.4-8.2)
[2018-02-11 08:30] VITALS: BP 121/80; PULSE 60; TEMP 98; O2SAT 98
[2018-02-11] MEDS: SODIUM CHLORIDE 0.9% FLUSH 10 ML FLUSH IV FLUSH SCH (08:36)
[2018-02-11] MEDS: NICOTINE 21 MG/24 HR PATCH T-DERMAL SCH (08:38)
[2018-02-11] MEDS: DOCUSATE SODIUM 50 MG/SENNA 8.6 MG TAB PO SCH (08:42)
[2018-02-11] MEDS ORDERED: MULTIVITAMINS/MINERALS THERAPEUTIC TAB PO SCH (10:00)
[2018-02-11] MEDS ORDERED: FOLIC ACID 1 MG TAB PO SCH (10:00)
[2018-02-11] MEDS ORDERED: THIAMINE HCL 100 MG TAB PO SCH (10:00)
[2018-02-11] MEDS: ENOXAPARIN SODIUM 40 MG/0.4 ML SYRINGE SQ SCH (10:57)
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
[2018-02-11] MEDS ORDERED: THERM PO (12:41)
--- NOTE | 2018-02-11 12:41 | HHI.DCPOC ---
Discharge Care Plan Diagnosis: (1) Alcoholic pancreatitis (2) Alcohol dependence (3) Tobacco abuse Goals to Promote Your Health * To prevent worsening of your condition and complications * To maintain your health at the optimal level Directions to Meet Your Goals Take your medications as prescribed Follow your dietary instruction Follow activity as directed Keep your appointments as scheduled Take your immunizations and boosters as scheduled If your symptoms worsen call your PCP, if no PCP go to Urgent Care Center or Emergency Room Smoking is Dangerous to Your Health. Avoid second hand smoke Call the 24-hour hour crisis hotline for domestic abuse at Eliana Casper MD, R3 Feb 11, 2018 12:41
[2018-02-11] MEDS ORDERED: KETOROLAC TROMETHAMINE 10 MG TAB PO PRN (12:45)
[2018-02-11 12:53] VITALS: BP 148/89; PULSE 75; TEMP 98.1; O2SAT 98
[2018-02-11 18:44] VITALS: BP 142/90; PULSE 83; TEMP 97.8; O2SAT 100
--- NOTE | 2018-02-11 19:51 | EKG ---
Date Performed: 02/10/2018 Time Performed: 15:01:08 PTAGE: 47 years EKG: Sinus rhythm . Lead(s) unsuitable for analysis: V1 Since the PREVIOUS TRACING , no significant change noted Normal ECG based on available leads PREVIO TRACIN11/07/18 @ 1219 DOCTOR: More Cabral Interpretating Date/Time 02/11/2018 19:48:13
== END 2018-02-11 19:37 | disposition home or self-care (01) ==
LOC: NEPE 09:04 → NEDA 11:35 → N04A 13:56
PROVIDERS: ADMIT Family Medicine; ATTEND Family Medicine
DX: K85.20 Alcohol induced acute pancreatitis without necrosis or infection (principal); F10.239 Alcohol dependence with withdrawal, unspecified; F10.24 Alcohol dependence with alcohol-induced mood disorder; R74.0 Nonspecific elevation of levels of transaminase and lactic acid dehydrogenase [LDH]; R07.9 Chest pain, unspecified; M79.1 Myalgia; K76.0 Fatty (change of) liver, not elsewhere classified; N20.0 Calculus of kidney; M25.539 Pain in unspecified wrist; G89.29 Other chronic pain; F41.9 Anxiety disorder, unspecified; F32.9 Major depressive disorder, single episode, unspecified; F17.200 Nicotine dependence, unspecified, uncomplicated; Z87.820 Personal history of traumatic brain injury
CPT/HCPCS: 80053; 80307; 81001; 82550; 82552; 82948; 83690; 84484; 85025; 93005; 96372; 96374; 96375; 96376; 97161; 99285; G0378; G8987; G8988; J1650; J1885; J2060; J2405; J3411; J7030; J7042

== ENCOUNTER 2018-02-16 10:38 | Emergency (ER) | payer SELFPAY ==
[~2018-02-16] VITALS: Ht 182.9 cm; Wt 79.0 kg
[~2018-02-16 10:38] MED LIST changes: +THERM PO; -ZOFR4TAB3 SL
[2018-02-16 11:40] VITALS: BP 120/72; PULSE 90; RESP 16; TEMP 98.3; O2SAT 98
[2018-02-16] MEDS ORDERED: DIAZ10 PO (15:11)
--- NOTE | 2018-02-16 15:12 | PD ---
HPI Chief Complaint: Headache Time Seen by Provider: 14:53 Travel History International Travel<30 days: No Contact w/Intl Traveler<30days: No Traveled to known affect area: No History of Present Illness HPI 47-year-old male arrives stating he is in withdrawal from alcohol. He was discharged from [facility] a few days prior with a prescription for Ativan and Librium. He has known left since then has been feeling anxious and tremulous. He denies loss of consciousness. No chest pain or shortness of breath. He denies suicidal/homicidal ideation. No drug abuse. Last drink was eight days prior. Associated symptoms include insomnia. PFSH Past Medical History Hx Anticoagulant Therapy: No Arthritis: Yes (Pt stated pt has arthritis in left hand) Asthma: No Anxiety: Yes Depression: Yes Heart Rhythm Problems: No Cancer: No Cardiovascular Problems: No High Cholesterol: Yes Chemotherapy: No Chest Pain: No Congestive Heart Failure: No COPD: No Cerebrovascular Accident: No Diabetes: No Diminished Hearing: No Endocrine: No Gastrointestinal Disorders: No Genitourinary: No Headaches: Yes Hepatitis: No Hiatal Hernia: No Hypertension: No Immune Disorder: No Musculoskeletal: No Neurologic: Yes (H/O TBI) Psychiatric: Yes Reproductive: No Respiratory: No Immunizations Current: Yes Migraines: No Seizures: No Sleep Apnea: No Thyroid Disease: No Ulcer: No Tetanus Vaccination: < 5 Years Influenza Vaccination: No Past Surgical History Abdominal Surgery: No AICD: No Body Medical Devices: NONE Cardiac Surgery: No Ear Surgery: No Endocrine Surgery: No Eye Surgery: No Genitourinary Surgery: No Joint Replacement: No Neurologic Surgery: No Oral Surgery: Yes (TONSILLECTOMY ) Pacemaker: No Thoracic Surgery: No Tonsillectomy: Yes Other Surgery: Yes (right arm 2015, knee, wrist) Social History Alcohol Use: Yes (8-10 beers/day) Tobacco Use: Yes (1 PPD) Substance Use: No Allergies-Medications (Allergen,Severity, Reaction): Coded Allergies: cephalexin (Verified Allergy, Unknown, 02/16/18) MAKES ME VOMIT Reported Meds & Prescriptions Reported Meds & Active Scripts Active Review of Systems Except as stated in HPI: all other systems reviewed are Neg Physical Exam Narrative GENERAL: 47 yo M, WNWD, NAD Vital Signs Date Time Temp Pulse Resp B/P (MAP) Pulse Ox O2 Delivery O2 Flow Rate FiO2 02/16/18 11:40 98.3 90 16 120/72 (88) 98 SKIN: Warm and dry. HEAD: Atraumatic. Normocephalic. EYES: Pupils equal and round. No scleral icterus. No injection or drainage. ENT: No nasal bleeding or discharge. Mucous membranes pink and moist. NECK: Trachea midline. No JVD. CARDIOVASCULAR: Regular rate and rhythm. RESPIRATORY: No accessory muscle use. Clear to auscultation. Breath sounds equal bilaterally. GASTROINTESTINAL: Abdomen soft, non-tender, nondistended. Hepatic and splenic margins not palpable. MUSCULOSKELETAL: Extremities without clubbing, cyanosis, or edema. No obvious deformities. NEUROLOGICAL: Awake and alert. No obvious cranial nerve deficits. Motor grossly within normal limits. Five out of 5 muscle strength in the arms and legs. Normal speech. PSYCHIATRIC: Appropriate mood and affect; insight and judgment normal. Data Data Last Documented VS Vital Signs Date Time Temp Pulse Resp B/P (MAP) Pulse Ox O2 Delivery O2 Flow Rate FiO2 02/16/18 11:40 98.3 90 16 120/72 (88) 98 Orders Orders Diazepam (Valium) (02/16/18 15:15) Ed Discharge Order (02/16/18 15:08) [facility] Medical Decision Making Medical Screen Exam Complete: Yes Emergency Medical Condition: Yes Medical Record Reviewed: Yes Differential Diagnosis etoh withdrawal, alcoholism, alcohol intoxication Narrative Course Valium prescription for etoh detox Pt reports no EtOH for 8 days and reports intent to stop alcohol completely Diagnosis Primary Impression: Alcohol dependence Qualified Codes: F10.29 - Alcohol dependence with unspecified alcohol-induced disorder [facility] 2 days Med/Other Pt SpecificInfo: Prescription(s) given Scripts Diazepam (Valium) 10 Mg Tab 10 MG PO DAILY Y for WITHDRAWAL, #15 TAB 0 Refills Prov: Giuseppe Garcia MD 02/16/18 Disposition: 01 DISCHARGE HOME Condition: Stable Giuseppe Garcia MD Feb 16, 2018 15:12
[2018-02-16] MEDS ORDERED: DIAZEPAM 5 MG TAB PO ONE (15:15)
== END 2018-02-16 15:34 | disposition home or self-care (01) ==
LOC: PHED 10:38
DX: F10.20 Alcohol dependence, uncomplicated (principal); M19.042 Primary osteoarthritis, left hand; F41.9 Anxiety disorder, unspecified; F32.9 Major depressive disorder, single episode, unspecified; E78.00 Pure hypercholesterolemia, unspecified; F17.200 Nicotine dependence, unspecified, uncomplicated; Z87.820 Personal history of traumatic brain injury; Z88.8 Allergy status to other drugs, medicaments and biological substances
CPT/HCPCS: 99283

== ENCOUNTER 2018-05-04 10:48 | Emergency (ER) | payer SELFPAY ==
[~2018-05-04 10:48] MED LIST changes: +DIAZ10 PO; -THERM PO
[2018-05-04 10:52] VITALS: BP 147/65; PULSE 90; RESP 16; TEMP 98.9; O2SAT 97
[2018-05-04] MEDS ORDERED: IBUP1TAB7 PO (11:14)
[2018-05-04] MEDS ORDERED: PENI500T PO (11:14)
[2018-05-04] MEDS ORDERED: MAGICPED SWISH-SPIT (11:14)
--- NOTE | 2018-05-04 11:17 | PD ---
HPI Chief Complaint: Oral / Dental Pain or Problem Time Seen by Provider: 11:07 Travel History International Travel<30 days: No Contact w/Intl Traveler<30days: No Traveled to known affect area: No History of Present Illness HPI 47-year-old male presents emergency department with complaints of left lower jaw and tooth pain that started several days ago. Says that last night was worse and decided to come in today for evaluation. Says the pain radiates from the second bicuspid region into his TMJ and his ear. Currently, the pain is 5/ 10 and aching. Patient took aspirin yesterday without significant improvement. Says that he also developed some left neck pain but denies stiff neck. Says today his pain has improved somewhat but is still concerned for an infection. Says that he does not have dental insurance so he is not followed up with the dentist yet. He has not followed up with any other provider regarding this complaint. He denies fevers or chills. Has no other complaints today. PFSH Past Medical History Hx Anticoagulant Therapy: No Arthritis: Yes (Pt stated pt has arthritis in left hand) Asthma: No Anxiety: Yes Depression: Yes Heart Rhythm Problems: No Cancer: No Cardiovascular Problems: No High Cholesterol: Yes Chemotherapy: No Chest Pain: No Congestive Heart Failure: No COPD: No Cerebrovascular Accident: No Diabetes: No Diminished Hearing: No Endocrine: No Gastrointestinal Disorders: No Genitourinary: No Headaches: Yes Hepatitis: No Hiatal Hernia: No Hypertension: No Immune Disorder: No Musculoskeletal: No Neurologic: Yes (H/O TBI) Psychiatric: Yes Reproductive: No Respiratory: No Immunizations Current: Yes Migraines: No Seizures: No Sleep Apnea: No Thyroid Disease: No Ulcer: No Tetanus Vaccination: < 5 Years Influenza Vaccination: No Past Surgical History Abdominal Surgery: No AICD: No Body Medical Devices: NONE Cardiac Surgery: No Ear Surgery: No Endocrine Surgery: No Eye Surgery: No Genitourinary Surgery: No Joint Replacement: No Neurologic Surgery: No Oral Surgery: Yes (TONSILLECTOMY ) Pacemaker: No Thoracic Surgery: No Tonsillectomy: Yes Other Surgery: Yes (right arm 2015, knee, wrist) Social History Alcohol Use: No (none currently) Tobacco Use: Yes (1 PPD) Substance Use: No (in past) Allergies-Medications (Allergen,Severity, Reaction): Coded Allergies: cephalexin (Verified Allergy, Unknown, 05/04/18) MAKES ME VOMIT Reported Meds & Prescriptions Reported Meds & Active Scripts Active Ibuprofen 800 Mg Tab 800 Mg PO Q8H PRN 5 Days Magic Mouthwash Pediatric/Adult Liq (Lidocaine/Diphenhydr/Alum/Mg/Simeth) 60 Ml Susp 5 Ml SWISH-SPIT ACHS Each 5mL contains: Diphenydramine 4.5mg, Viscous Lidocaine 2% 10mg, Maalox Advanced Regular Strength 2.7ml Penicillin V Potassium 500 Mg Tab 500 Mg PO Q8H 10 Days Review of Systems Except as stated in HPI: all other systems reviewed are Neg Physical Exam Narrative GENERAL: Well-nourished, well-developed patient, in NAD SKIN: Focused skin assessment warm/dry. No rashes or lesions. HEAD: Normocephalic. Atraumatic. EYES: No scleral icterus. No injection or drainage. PERRLA, EOMI THROAT: No pharyngeal injection, exudates, or tonsillar hypertrophy. Airway is patent. Poor dentition. Left lower jaw second bicuspid region with significant dental caries. Mild tenderness to palpation with scant fluctuance in the deep tissue of the jaw. No obvious drainage. Mild tenderness to palpation of the left TMJ. NECK: Supple, trachea midline. No JVD or lymphadenopathy. No meningismus. CARDIOVASCULAR: Regular rate and rhythm without murmurs, gallops, or rubs. RESPIRATORY: Breath sounds equal bilaterally. No accessory muscle use. No wheezes, rales, or rhonchi MUSCULOSKELETAL: No cyanosis, or edema. BACK: Nontender without obvious deformity. No CVA tenderness. Data Data Last Documented VS Vital Signs Date Time Temp Pulse Resp B/P (MAP) Pulse Ox O2 Delivery O2 Flow Rate FiO2 05/04/18 10:52 98.9 90 16 147/65 (92) 97 Orders Orders Ed Discharge Order (05/04/18 11:21) MDM Medical Decision Making Medical Screen Exam Complete: Yes Emergency Medical Condition: Yes Differential Diagnosis Tooth abscess, dental infection, cellulitis Narrative Course 47-year-old male presents emergency department with complaints of left lower jaw and tooth pain that started several days ago. Says that last night was worse and decided to come in today for evaluation. Says the pain radiates from the second bicuspid region into his TMJ and his ear. Currently, the pain is 5/ 10 and aching. Patient took aspirin yesterday without significant improvement. Says that he also developed some left neck pain but denies stiff neck. Says today his pain has improved somewhat but is still concerned for an infection. Says that he does not have dental insurance so he is not followed up with the dentist yet. He has not followed up with any other provider regarding this complaint. He denies fevers or chills. Has no other complaints today. Vital signs are stable. The exam findings consistent with a dental infection. Questionable developing abscess however, this is in the deep tissue of the gum/jawline. I believe it is amenable to antibiotics and incision and drainage would be rather invasive for the size. Patient discharged with penicillin, Magic mouthwash, ibuprofen. He is strongly advised to follow-up with his primary care physician and dentist. Return for worsening or persistent symptoms. Diagnosis Primary Impression: Dental infection Referrals: Dentist Primary Care Physician Patient Instructions: Dental Abscess (ED), General Instructions Additional Instructions: Follow-up with the dentist as discussed. Take all antibiotics as prescribed to reduce complications. Avoid other anti-inflammatories while taking ibuprofen. Scripts Ibuprofen (Ibuprofen) 800 Mg Tab 800 MG PO Q8H Y for Pain/Inflammation for 5 Days, #15 TAB 0 Refills Prov: Bere Hodge MD 05/04/18 Dztlwiykiktaxhy-Abgleqvzi-Uso-Alum-Simeth Liq (Magic Mouthwash Pediatric/Adult Liq) 60 Ml Susp 5 ML SWISH-SPIT ACHS for Mouth sores, #60 ML 0 Refills Each 5mL contains: Diphenydramine 4.5mg, Viscous Lidocaine 2% 10mg, Maalox Advanced Regular Strength 2.7ml Prov: Bere Hodge MD 05/04/18 Penicillin V Potassium (Penicillin V Potassium) 500 Mg Tab 500 MG PO Q8H for Infection for 10 Days, #30 TAB 0 Refills Prov: Bere Hodge MD 05/04/18 Disposition: 01 DISCHARGE HOME Condition: Stable Geena Miner May 04, 2018 11:17
== END 2018-05-04 11:31 | disposition home or self-care (01) ==
LOC: PHEFT 10:48
DX: K04.7 Periapical abscess without sinus (principal); M54.2 Cervicalgia; F41.9 Anxiety disorder, unspecified; F32.9 Major depressive disorder, single episode, unspecified; E78.00 Pure hypercholesterolemia, unspecified; F17.200 Nicotine dependence, unspecified, uncomplicated
CPT/HCPCS: 99283

== ENCOUNTER 2018-05-09 16:52 | Emergency (ER) | payer OTHER ==
[~2018-05-09] VITALS: Ht 182.9 cm; Wt 86.5 kg
[~2018-05-09 16:52] MED LIST changes: -DIAZ10 PO; +IBUP1TAB7 PO; +MAGICPED SWISH-SPIT; +PENI500T PO
[2018-05-09 17:11] VITALS: BP 152/92; PULSE 109; RESP 18; TEMP 98.4; O2SAT 98
[2018-05-09] MEDS ORDERED: HALOPERIDOL LACTATE 5 MG/ML AMP IM ONE (17:15)
[2018-05-09] MEDS ORDERED: LORazepam 2 MG/ML VIAL IM ONE (17:15)
[2018-05-09 18:03] LABS: AUTOMATED NEUTROPHIL # 8.9 TH/MM3 (1.8-7.7); BASOPHIL # 0.1 TH/MM3 (0-0.2); BASOPHIL % 0.5 % (0.0-2.0); EOSINOPHIL % 0.3 % (0.0-4.0); HEMOGLOBIN 14.6 GM/DL (13.0-17.0); LYMPH % 29.5 % (9.0-44.0); LYMPHOCYTE # 4.1 TH/MM3 (1.0-4.8); MEAN CELL VOLUME 98.7 FL (80.0-100.0); MEAN CORPUSCULAR HEMOGLOBIN 33.4 PG (27.0-34.0); MEAN CORPUSCULAR HGB CONC 33.9 % (32.0-36.0); MEAN PLATELET VOLUME 8.3 FL (7.0-11.0); MONO % 5.5 % (0.0-8.0); MONOCYTE # 0.8 TH/MM3 (0-0.9); NEUT % 64.2 % (16.0-70.0); PLATELET COUNT 394 TH/MM3 (150-450); RED BLOOD COUNT 4.36 MIL/MM3 (4.50-5.90); RED CELL DISTRIBUTION WIDTH 12.3 % (11.6-17.2); WHITE BLOOD COUNT 13.8 TH/MM3 (4.0-11.0)
[2018-05-09 18:30] LABS: ALBUMIN 4.2 GM/DL (3.4-5.0); AST (GOT) 16 U/L (15-37); BICARBONATE 20.9 MEQ/L (21.0-32.0); BLOOD UREA NITROGEN 11 MG/DL (7-18); CALCIUM 8.6 MG/DL (8.5-10.1); CHLORIDE 106 MEQ/L (98-107); GLOMERULAR FILTRATION RATE 90 ML/MIN (>89); GLUCOSE,RANDOM 105 MG/DL (74-106); SODIUM (NA) 141 MEQ/L (136-145)
[2018-05-09] MEDS ORDERED: FLUMAZENIL 0.5 MG/5 ML VIAL IV PUSH PRN (18:30)
[2018-05-09] MEDS ORDERED: LORazepam 1 MG TAB PO PRN (18:30)
[2018-05-09] MEDS ORDERED: LORazepam 2 MG/ML VIAL IV PUSH PRN ×4 (18:30)
[2018-05-09 18:42] LABS: ALKALINE PHOSPHATASE 82 U/L (45-117); ALT (GPT) 34 U/L (12-78); TOTAL BILIRUBIN ADULT 0.3 MG/DL (0.2-1.0); TOTAL PROTEIN 8.3 GM/DL (6.4-8.2)
[2018-05-09 18:44] LABS: BILIRUBIN, URINE NEG (NEG); BLOOD, URINE NEG (NEG); GLUCOSE,URINE NEG (NEG); KETONE, URINE NEG (NEG); MUCUS URINE FEW /lpf (OCC); NITRITE,URINE NEG (NEG); URINE COLOR YELLOW (YELLW/STRAW); URINE LEUKOCYTE ESTERASE NEG (NEG)
[2018-05-09 22:37] VITALS: BP 96/53; PULSE 74; RESP 16; TEMP 97.8; O2SAT 98
[2018-05-10] MEDS ORDERED: BENZONATATE 100 MG CAP PO ONE (05:15)
[2018-05-10] MEDS: LORazepam 2 MG TAB PO PRN ×2 (06:40→06:41)
[2018-05-10 06:51] VITALS: BP 139/77; PULSE 101; RESP 20; TEMP 99.5; O2SAT 98
[2018-05-10 09:00] VITALS: BP 129/71; PULSE 71; RESP 16; O2SAT 97
[2018-05-10 10:31] VITALS: BP 123/79; PULSE 94; RESP 18; O2SAT 97
--- NOTE | 2018-05-10 11:25 | PD ---
Physical Exam Date Seen by Provider: May 10, 2018 Time Seen by Provider: 11:22 Data Data Last Documented VS Vital Signs Date Time Temp Pulse Resp B/P (MAP) Pulse Ox O2 Delivery O2 Flow Rate FiO2 05/10/18 10:31 94 18 123/79 (94) 97 Room Air 05/10/18 06:51 99.5 Orders Orders Complete Blood Count With Diff (05/09/18 17:13) Comprehensive Metabolic Panel (05/09/18 17:13) Thyroid Stimulating Hormone (05/09/18 17:13) Urinalysis - C+S If Indicated (05/09/18 17:13) Psych Screen (05/09/18 17:13) Haloperidol Inj (Haldol Inj) (05/09/18 17:15) Lorazepam Inj (Ativan Inj) (05/09/18 17:15) Drug Screen, Random Urine (05/09/18 17:13) Alcohol (Ethanol) (05/09/18 17:13) Alcohol Withdrawal Asmt-Ciwa Q4HX18 (05/09/18 18:18) Flumazenil Inj (Romazicon Inj) (05/09/18 18:30) Lorazepam (Ativan) (05/09/18 18:30) Lorazepam Inj (Ativan Inj) (05/09/18 18:30) Lorazepam (Ativan) (05/09/18 18:30) Lorazepam Inj (Ativan Inj) (05/09/18 18:30) Lorazepam Inj (Ativan Inj) (05/09/18 18:30) Lorazepam Inj (Ativan Inj) (05/09/18 18:30) Diet Regular Basic (05/09/18 Dinner) Diet Regular Basic (05/10/18 Breakfast) Benzonatate (Tessalon) (05/10/18 05:15) Diet Regular Basic (05/10/18 Lunch) Labs Laboratory Tests Test 05/09/18 17:20 05/09/18 18:15 White Blood Count 13.8 TH/MM3 Red Blood Count 4.36 MIL/MM3 Hemoglobin 14.6 GM/DL Hematocrit 43.0 % Mean Corpuscular Volume 98.7 FL Mean Corpuscular Hemoglobin 33.4 PG Mean Corpuscular Hemoglobin Concent 33.9 % Red Cell Distribution Width 12.3 % Platelet Count 394 TH/MM3 Mean Platelet Volume 8.3 FL Neutrophils (%) (Auto) 64.2 % Lymphocytes (%) (Auto) 29.5 % Monocytes (%) (Auto) 5.5 % Eosinophils (%) (Auto) 0.3 % Basophils (%) (Auto) 0.5 % Neutrophils # (Auto) 8.9 TH/MM3 Lymphocytes # (Auto) 4.1 TH/MM3 Monocytes # (Auto) 0.8 TH/MM3 Eosinophils # (Auto) 0.0 TH/MM3 Basophils # (Auto) 0.1 TH/MM3 CBC Comment DIFF FINAL Differential Comment Blood Urea Nitrogen 11 MG/DL Creatinine 0.90 MG/DL Random Glucose 105 MG/DL Total Protein 8.3 GM/DL Albumin 4.2 GM/DL Calcium Level 8.6 MG/DL Alkaline Phosphatase 82 U/L Aspartate Amino Transf (AST/SGOT) 16 U/L Alanine Aminotransferase (ALT/SGPT) 34 U/L Total Bilirubin 0.3 MG/DL Sodium Level 141 MEQ/L Potassium Level 3.8 MEQ/L Chloride Level 106 MEQ/L Carbon Dioxide Level 20.9 MEQ/L Anion Gap 14 MEQ/L Estimat Glomerular Filtration Rate 90 ML/MIN Thyroid Stimulating Hormone 3rd Gen 0.945 uIU/ML Ethyl Alcohol Level 320 MG/DL Urine Color YELLOW Urine Turbidity CLEAR Urine pH 5.0 Urine Specific Hurricane 1.008 Urine Protein NEG mg/dL Urine Glucose (UA) NEG mg/dL Urine Ketones NEG mg/dL Urine Occult Blood NEG Urine Nitrite NEG Urine Bilirubin NEG Urine Urobilinogen LESS THAN 2 mg/dL Urine Leukocyte Esterase NEG Urine Mucus FEW /lpf Microscopic Urinalysis Comment CULT NOT INDICATED Urine Opiates Screen NEG Urine Barbiturates Screen NEG Urine Amphetamines Screen NEG Urine Benzodiazepines Screen NEG Urine Cocaine Screen NEG Urine Cannabinoids Screen NEG [facility] Supervised Visit with EUGENE: No Narrative Course 47-year-old male brought to the ED under Rosa act. He was initially evaluated and medically cleared by Mayco Barber PA-C. Please see his note for those details. He was then evaluated by Dr. Thibodeaux and the Rosa act was lifted. Please see his note for those details. Patient diagnosed with alcohol induced mood disorder. Plan is for the patient to follow-up with outpatient community resources such as [facility]. The patient is stable and discharged home. Diagnosis Primary Impression: Alcohol-induced mood disorder Referrals: [facility] Additional Instruction: Rest, hydrate. Follow-up with Jeremie Ordaz for further evaluation and treatment. Return to the ED for worsening symptoms or any urgent or emergent medical condition. Disposition: 01 DISCHARGE HOME Condition: Stable Renee Kaiser May 10, 2018 11:25
--- NOTE | 2018-05-10 12:28 | PD ---
HPI Chief Complaint: Psychiatric Symptoms Time Seen by Provider: 17:12 Travel History International Travel<30 days: No Contact w/Intl Traveler<30days: No Traveled to known affect area: No History of Present Illness HPI 47-year-old male brought in under the Rosa act after drinking "not enough alcohol" and threatening behavior to both glands and police. Patient denies suicidal ideation, but wants to "hurt other people". Patient states she has had a recent tooth abscess treated with penicillin which is getting better, but denies any other acute medical issues at this time. Patient is in handcuffs and is threatening and uncooperative. He is allergic to penicillin and cephalexin. PFSH Past Medical History Hx Anticoagulant Therapy: No Arthritis: Yes (Pt stated pt has arthritis in left hand) Asthma: No Anxiety: Yes Depression: Yes Heart Rhythm Problems: No Cancer: No Cardiovascular Problems: No High Cholesterol: Yes Chemotherapy: No Chest Pain: No Congestive Heart Failure: No COPD: No Cerebrovascular Accident: No Diabetes: No Diminished Hearing: No Endocrine: No Gastrointestinal Disorders: No Genitourinary: No Headaches: Yes Hepatitis: No Hiatal Hernia: No Hypertension: No Immune Disorder: No Musculoskeletal: No Neurologic: Yes (H/O TBI) Psychiatric: Yes Reproductive: No Respiratory: No Immunizations Current: Yes Migraines: No Seizures: No Sleep Apnea: No Thyroid Disease: No Ulcer: No ?: Not Past Surgical History Abdominal Surgery: No AICD: No Body Medical Devices: NONE Cardiac Surgery: No Ear Surgery: No Endocrine Surgery: No Eye Surgery: No Genitourinary Surgery: No Joint Replacement: No Neurologic Surgery: No Oral Surgery: Yes (TONSILLECTOMY ) Pacemaker: No Thoracic Surgery: No Tonsillectomy: Yes Other Surgery: Yes (right arm 2015, knee, wrist) Social History Alcohol Use: Yes (Drank today per pt.) Tobacco Use: Yes (1 PPD) Substance Use: No (in past) Allergies-Medications (Allergen,Severity, Reaction): Coded Allergies: Penicillins (Verified Allergy, Unknown, 05/09/18) Per pt. cephalexin (Verified Allergy, Unknown, 05/04/18) MAKES ME VOMIT Reported Meds & Prescriptions Reported Meds & Active Scripts Active Ibuprofen 800 Mg Tab 800 Mg PO Q8H PRN 5 Days Magic Mouthwash Pediatric/Adult Liq (Lidocaine/Diphenhydr/Alum/Mg/Simeth) 60 Ml Susp 5 Ml SWISH-SPIT ACHS Each 5mL contains: Diphenydramine 4.5mg, Viscous Lidocaine 2% 10mg, Maalox Advanced Regular Strength 2.7ml Penicillin V Potassium 500 Mg Tab 500 Mg PO Q8H 10 Days Review of Systems ROS Limitations: Intoxication, Uncooperative, Refused, Combative Except as stated in HPI: all other systems reviewed are Neg General / Constitutional: No: Fever Eyes: No: Visual changes HENT: No: Headaches Cardiovascular: No: Chest Pain or Discomfort Respiratory: No: Shortness of Breath Gastrointestinal: No: Abdominal Pain Genitourinary: No: Dysuria Musculoskeletal: No: Pain Skin: No Rash Neurologic: No: Weakness Psychiatric: No: Depression Endocrine: No: Polydipsia Hematologic/Lymphatic: No: Easy Bruising Physical Exam Exam Limitations: Intoxication, Uncooperative, Combative Narrative GENERAL: Patient appears intoxicated and combative. He has no obvious medical conditions. SKIN: Warm and dry. Normal color. Normal turgor. No wounds, abrasions, or lacerations. HEAD: Atraumatic. Normocephalic. EYES: Pupils equal and round. No scleral icterus. No injection or drainage. ENT: No nasal bleeding or discharge. Mucous membranes pink and moist. No obvious dental injury. Pharynx is clear. NECK: Trachea midline. Supple CARDIOVASCULAR: Regular rate and rhythm. RESPIRATORY: No accessory muscle use. Clear to auscultation. Breath sounds equal bilaterally. MUSCULOSKELETAL: Extremities without clubbing, cyanosis, or edema. No obvious deformities. NEUROLOGICAL: Awake and alert. No obvious cranial nerve deficits. Motor grossly within normal limits. Five out of 5 muscle strength in the arms and legs. Normal speech. Data Data Last Documented VS Vital Signs Date Time Temp Pulse Resp B/P (MAP) Pulse Ox O2 Delivery O2 Flow Rate FiO2 05/10/18 11:33 05/10/18 10:31 94 18 97 Room Air 05/10/18 06:51 99.5 Orders Orders Complete Blood Count With Diff (05/09/18 17:13) Comprehensive Metabolic Panel (05/09/18 17:13) Thyroid Stimulating Hormone (05/09/18 17:13) Urinalysis - C+S If Indicated (05/09/18 17:13) Psych Screen (05/09/18 17:13) Haloperidol Inj (Haldol Inj) (05/09/18 17:15) Lorazepam Inj (Ativan Inj) (05/09/18 17:15) Drug Screen, Random Urine (05/09/18 17:13) Alcohol (Ethanol) (05/09/18 17:13) Alcohol Withdrawal Asmt-Ciwa [id number] (05/09/18 18:18) Flumazenil Inj (Romazicon Inj) (05/09/18 18:30) Lorazepam (Ativan) (05/09/18 18:30) Lorazepam Inj (Ativan Inj) (05/09/18 18:30) Lorazepam (Ativan) (05/09/18 18:30) Lorazepam Inj (Ativan Inj) (05/09/18 18:30) Lorazepam Inj (Ativan Inj) (05/09/18 18:30) Lorazepam Inj (Ativan Inj) (05/09/18 18:30) Diet Regular Basic (05/09/18 Dinner) Diet Regular Basic (05/10/18 Breakfast) Benzonatate (Tessalon) (05/10/18 05:15) Ed Discharge Order (05/10/18 11:26) Labs Laboratory Tests Test 05/09/18 17:20 05/09/18 18:15 White Blood Count 13.8 TH/MM3 Red Blood Count 4.36 MIL/MM3 Hemoglobin 14.6 GM/DL Hematocrit 43.0 % Mean Corpuscular Volume 98.7 FL Mean Corpuscular Hemoglobin 33.4 PG Mean Corpuscular Hemoglobin Concent 33.9 % Red Cell Distribution Width 12.3 % Platelet Count 394 TH/MM3 Mean Platelet Volume 8.3 FL Neutrophils (%) (Auto) 64.2 % Lymphocytes (%) (Auto) 29.5 % Monocytes (%) (Auto) 5.5 % Eosinophils (%) (Auto) 0.3 % Basophils (%) (Auto) 0.5 % Neutrophils # (Auto) 8.9 TH/MM3 Lymphocytes # (Auto) 4.1 TH/MM3 Monocytes # (Auto) 0.8 TH/MM3 Eosinophils # (Auto) 0.0 TH/MM3 Basophils # (Auto) 0.1 TH/MM3 CBC Comment DIFF FINAL Differential Comment Blood Urea Nitrogen 11 MG/DL Creatinine 0.90 MG/DL Random Glucose 105 MG/DL Total Protein 8.3 GM/DL Albumin 4.2 GM/DL Calcium Level 8.6 MG/DL Alkaline Phosphatase 82 U/L Aspartate Amino Transf (AST/SGOT) 16 U/L Alanine Aminotransferase (ALT/SGPT) 34 U/L Total Bilirubin 0.3 MG/DL Sodium Level 141 MEQ/L Potassium Level 3.8 MEQ/L Chloride Level 106 MEQ/L Carbon Dioxide Level 20.9 MEQ/L Anion Gap 14 MEQ/L Estimat Glomerular Filtration Rate 90 ML/MIN Thyroid Stimulating Hormone 3rd Gen 0.945 uIU/ML Ethyl Alcohol Level 320 MG/DL Urine Color YELLOW Urine Turbidity CLEAR Urine pH 5.0 Urine Specific [place] 1.008 Urine Protein NEG mg/dL Urine Glucose (UA) NEG mg/dL Urine Ketones NEG mg/dL Urine Occult Blood NEG Urine Nitrite NEG Urine Bilirubin NEG Urine Urobilinogen LESS THAN 2 mg/dL Urine Leukocyte Esterase NEG Urine Mucus FEW /lpf Microscopic Urinalysis Comment CULT NOT INDICATED Urine Opiates Screen NEG Urine Barbiturates Screen NEG Urine Amphetamines Screen NEG Urine Benzodiazepines Screen NEG Urine Cocaine Screen NEG Urine Cannabinoids Screen NEG MDM Medical Decision Making Medical Screen Exam Complete: Yes Emergency Medical Condition: Yes Medical Record Reviewed: Yes Differential Diagnosis Rosa act. Alcohol intoxication. Threatening behavior. Narrative Course Patient is felt to be medically stable for admission to [facility]. Labs ordered per protocol. Patient is given 5 mg Haldol as well as 1 mg lorazepam IM. Restraints were ordered but were not necessary and then canceled Psych screen is ordered. Patient is medically cleared for psychiatric evaluation. Diagnosis Primary Impression: Alcohol-induced mood disorder Referrals: [facility] Instructions: General Instructions Departure Forms: Tests/Procedures Additional Instructions: Rest, hydrate. Follow-up with Jeremie Ordaz for further evaluation and treatment. Return to the ED for worsening symptoms or any urgent or emergent medical condition. Disposition: 01 DISCHARGE HOME Condition: Stable Mayco Barber May 10, 2018 12:28
--- NOTE | 2018-05-10 15:25 | PD.PSY.CON ---
Provisional Diagnosis Admission Date [place] I. Alcohol-induced mood disorder, alcohol use disorder History of Present Illness Service Psychiatry Consult Requested By ER Reason for Consult Psychiatry Primary Care Physician No Primary Care Physician HPI The patient is a 47-year-old man, domiciled in [place] with a friend, unemployed, single, with psychiatric history of alcohol use disorder, no significant medical history, who was brought in under the Rosa act after drinking "not enough alcohol" and threatening behavior to both glands and police. Patient denies suicidal ideation, but wants to "hurt other people". Patient states she has had a recent tooth abscess treated with penicillin which is getting better, but denies any other acute medical issues at this time. Patient is in handcuffs and is threatening and uncooperative. On my psychiatric evaluation today the patient is clinically sober. The patient reports being anxious and shaking, he is also sweating and visibly withdrawn. The patient denies suicidal enemas ideation, he denies visual and auditory hallucinations. The patient reports that last night when he came here he was very drunk, he does not know what he was talking. Patient reports that he has no intention to hurt himself, he actually is motivated to get in treatment for alcohol. She is no agitated, no aggressive, oriented 3, logical, coherent and relevant. Review of Systems Constitutional: DENIES: Diaphoretic episodes, Fatigue, Fever, Weight gain, Weight loss, Chills, Dizziness, Change in appetite, Night Sweats Endocrine: DENIES: Heat/cold intolerance, Polydipsia, Polyuria, Polyphagia Eyes: DENIES: Blurred vision, Diplopia, Eye inflammation, Eye pain, Vision loss , Photosensitivity, Double Vision Ears, nose, mouth, throat: DENIES: Tinnitus, Hearing loss, Vertigo, Nasal discharge, Oral lesions, Throat pain, Hoarseness, Ear Pain, Running Nose, Epistaxis, Sinus Pain, Toothache, Odynophagia Respiratory: DENIES: Apneas, Cough, Snoring, Wheezing, Hemoptysis, Sputum production, Shortness of breath Cardiovascular: DENIES: Chest pain, Palpitations, Syncope, Dyspnea on Exertion , PND, Lower Extremity Edema, Orthopnea, Claudication Gastrointestinal: DENIES: Abdominal pain, Black stools, Bloody stools, Constipation, Diarrhea, Nausea, Vomiting, Difficulty Swallowing, Anorexia Genitourinary: DENIES: Sexual dysfunction, Urinary frequency, Urinary incontinence, Urgency, Hematuria, Dysuria, Nocturia, Penile Discharge, Testicular Pain, Testicular Swelling Musculoskeletal: DENIES: Joint pain, Muscle aches, Stiffness, Joint Swelling, Back pain, Neck pain Integumentary: DENIES: Abnormal pigmentation, Nail changes, Pruritus, Rash Hematologic/lymphatic: DENIES: Bruising, Lymphadenopathy Immunologic/allergic: DENIES: Eczema, Urticaria Neurologic: COMPLAINS OF: Tremor, DENIES: Abnormal gait, Headache, Localized weakness, Paresthesias, Seizures, Speech Problems, Poor Balance Psychiatric: COMPLAINS OF: Anxiety, DENIES: Confusion, Mood changes, Depression , Hallucinations, Agitation, Suicidal Ideation, Homicidal Ideation, Delusions Past Family Social History Coded Allergies: Penicillins (Verified Allergy, Unknown, 05/09/18) Per pt. cephalexin (Verified Allergy, Unknown, 05/04/18) MAKES ME VOMIT Active Scripts Ibuprofen (Ibuprofen) 800 Mg Tab, 800 MG PO Q8H Y for Pain/Inflammation for 5 Days, #15 TAB 0 Refills Prov:Bere Hodge MD 05/04/18 Xdxzitriuydgyfb-Svlwptjef-Vef-Alum-Simeth Liq (Magic Mouthwash Pediatric/Adult Liq) 60 Ml Susp, 5 ML SWISH-SPIT ACHS for Mouth sores, #60 ML 0 Refills Each 5mL contains: Diphenydramine 4.5mg, Viscous Lidocaine 2% 10mg, Maalox Advanced Regular Strength 2.7ml Prov:Bere Hodge MD 05/04/18 Penicillin V Potassium (Penicillin V Potassium) 500 Mg Tab, 500 MG PO Q8H for Infection for 10 Days, #30 TAB 0 Refills Prov:Bere Hodge MD 05/04/18 Discontinued Scripts Diazepam (Valium) 10 Mg Tab, 10 MG PO DAILY Y for WITHDRAWAL, #15 TAB 0 Refills Prov:Giuseppe Garcia MD 02/16/18 Family Psych History No family psychiatric he Social History Patient was born and raised in [place], he lives in [place] with a friend, single, unemployed Physical Exam Vital Signs Vital Signs Date Time Temp Pulse Resp B/P (MAP) Pulse Ox O2 Delivery O2 Flow Rate FiO2 05/10/18 11:33 05/10/18 10:31 94 18 97 Room Air 05/10/18 06:51 99.5 Lab Results Test 05/09/18 17:20 05/09/18 18:15 White Blood Count 13.8 TH/MM3 Red Blood Count 4.36 MIL/MM3 Hemoglobin 14.6 GM/DL Hematocrit 43.0 % Mean Corpuscular Volume 98.7 FL Mean Corpuscular Hemoglobin 33.4 PG Mean Corpuscular Hemoglobin Concent 33.9 % Red Cell Distribution Width 12.3 % Platelet Count 394 TH/MM3 Mean Platelet Volume 8.3 FL Neutrophils (%) (Auto) 64.2 % Lymphocytes (%) (Auto) 29.5 % Monocytes (%) (Auto) 5.5 % Eosinophils (%) (Auto) 0.3 % Basophils (%) (Auto) 0.5 % Neutrophils # (Auto) 8.9 TH/MM3 Lymphocytes # (Auto) 4.1 TH/MM3 Monocytes # (Auto) 0.8 TH/MM3 Eosinophils # (Auto) 0.0 TH/MM3 Basophils # (Auto) 0.1 TH/MM3 CBC Comment DIFF FINAL Differential Comment Blood Urea Nitrogen 11 MG/DL Creatinine 0.90 MG/DL Random Glucose 105 MG/DL Total Protein 8.3 GM/DL Albumin 4.2 GM/DL Calcium Level 8.6 MG/DL Alkaline Phosphatase 82 U/L Aspartate Amino Transf (AST/SGOT) 16 U/L Alanine Aminotransferase (ALT/SGPT) 34 U/L Total Bilirubin 0.3 MG/DL Sodium Level 141 MEQ/L Potassium Level 3.8 MEQ/L Chloride Level 106 MEQ/L Carbon Dioxide Level 20.9 MEQ/L Anion Gap 14 MEQ/L Estimat Glomerular Filtration Rate 90 ML/MIN Thyroid Stimulating Hormone 3rd Gen 0.945 uIU/ML Ethyl Alcohol Level 320 MG/DL Urine Color YELLOW Urine Turbidity CLEAR Urine pH 5.0 Urine Specific [place] 1.008 Urine Protein NEG mg/dL Urine Glucose (UA) NEG mg/dL Urine Ketones NEG mg/dL Urine Occult Blood NEG Urine Nitrite NEG Urine Bilirubin NEG Urine Urobilinogen LESS THAN 2 mg/dL Urine Leukocyte Esterase NEG Urine Mucus FEW /lpf Microscopic Urinalysis Comment CULT NOT INDICATED Urine Opiates Screen NEG Urine Barbiturates Screen NEG Urine Amphetamines Screen NEG Urine Benzodiazepines Screen NEG Urine Cocaine Screen NEG Urine Cannabinoids Screen NEG Mental Status Examination Appearance: Appropriate Consciousness: Alert Orientation: x4 Motor Activity: Normal gait Speech: Unremarkable Language: Adequate Fund of Knowledge: Adequate Attention and Concentration: Adequate Memory: Unremarkable Mood: Appropriate Affect: Appropriate Thought Process & Associations: Intact Thought Content: Appropriate Hallucination Type: None Delusion Type: None Suicidal Ideation: No Suicidal Plan: No Suicidal Intention: No Homicidal Ideation: No Homicidal Plan: No Homicidal Intention: No Insight: Adequate Judgment: Adequate Assessment & Plan Problem List: (1) Alcohol-induced mood disorder ICD Codes: F10.94 - Alcohol use, unspecified with alcohol-induced mood disorder Status: Acute Assessment & Plan: At the moment of my psychiatric evaluation the patient denies symptomatology of depression, anxiety, kenzie and psychosis. The patient is clinically sober. Denies suicidal and homicidal ideation, denies visual and auditory hallucinations. Does present bilateral tremors, sweating, he is visibly withdrawn. Will order Ativan 2 mg po withdrawal. Rosa act will be lifted, but patient would be [facility]. Assessment & Plan Estimated LOS: Manuel Kulkarni MD May 10, 2018 15:25
== END 2018-05-10 11:33 | disposition home or self-care (01) ==
LOC: NEDAMB 16:52 → NEPJ 05-10 11:33
DX: F10.94 Alcohol use, unspecified with alcohol-induced mood disorder (principal); Y90.8 Blood alcohol level of 240 mg/100 ml or more; E78.00 Pure hypercholesterolemia, unspecified; F32.9 Major depressive disorder, single episode, unspecified; F41.9 Anxiety disorder, unspecified; F17.200 Nicotine dependence, unspecified, uncomplicated; K04.7 Periapical abscess without sinus; Z79.2 Long term (current) use of antibiotics; Z79.899 Other long term (current) drug therapy
CPT/HCPCS: 80053; 80307; 81001; 84443; 85025; 96372; 99284; J1630; J2060